=== PATIENT | male | born 1940 | race Caucasian/White ===

== ENCOUNTER 2016-12-28 08:54 | Day surgery (SDC) | payer MEDICARE, BC ==
[2016-12-28] MEDS ORDERED: Dextrose 5%-Lactated Ringers 1,000 ML IV SCH (09:30)
[2016-12-28] MEDS ORDERED: Propofol 200 MG/20 ML SDV ONE (10:04)
[2016-12-28] MEDS ORDERED: Midazolam 1 MG/ML 2 ML SDV ONE (10:05)
[2016-12-28] MEDS ORDERED: fentaNYL 100 MCG/2 ML SDV ONE (10:05)
[2016-12-28] MEDS ORDERED: Glycopyrrolate 0.2 MG/ML 2 ML SYRINGE IVPUSH ONE (10:15)
[2016-12-28] MEDS ORDERED: Famotidine 20 MG/2 ML SDV IVPUSH ONE (11:00)
[2016-12-28 12:03] VITALS: BP 135/63
--- NOTE | 2017-01-03 13:51 | OR ---
DATE OF PROCEDURE: 12/28/2016 PREOPERATIVE DIAGNOSIS: Probable gastroesophageal reflux disease. POSTOPERATIVE DIAGNOSES: 1. Gastroesophageal reflux disease. 2. Mild antral gastritis. OPERATIVE PROCEDURE: Esophagogastroduodenoscopy with: 1. Biopsies of antrum for CLOtest. 2. Biopsies esophagogastric junction for histologic evaluation. ANESTHESIA: IV sedation. INDICATION FOR PROCEDURE: This is a 76-year-old male presenting with some worsening problems with heartburn and associated nausea. The patient was thought to be suffering from gastroesophageal reflux disease and was offered proton pump inhibitor given his renal insufficiency. The patient and his declined to initiate that, and he is back now for a followup upper GI endoscopy to assess the current extent of the disease. Potential risks including bleeding and perforation were discussed, and the patient wishes to proceed. DETAILS OF PROCEDURE: The patient was taken to the operating room and placed in left lateral decubitus position. IV sedation was administered, after which the upper GI endoscope was passed orally through the length of the esophagus into the stomach with retroflexion view of the fundus, and thereafter through the pyloric channel and into the junction of the third and fourth portions of the duodenum. The findings include a normal hypopharynx, larynx, upper esophageal sphincter, and esophageal body. At the EG junction, there was a moderate-sized hiatal hernia measuring around 2 to 3 cm. There was some moderately active gastroesophageal reflux disease. There is no ulcerations present, but the mucosa was generally reddened and somewhat friable. There was no stricture or gross evidence of neoplasia. There was no significant elevation of the gastroesophageal junction mucosal line above the upper gastric folds. The remainder of stomach showed some mild redness in the antrum. The pyloric channel, duodenum, and junction of the third and fourth portions were unremarkable. At this point, biopsies were obtained from the antrum and sent for CLOtest for H. pylori. Multiple biopsies were then obtained from esophagogastric junction and sent for histologic evaluation. No bleeding of the biopsy sites was seen and the procedure then concluded. PLAN: The plan at this point will be to start the patient on some Pepcid. The case was discussed with the hospital pharmacist and given the creatinine clearance in the 30s, I should recommend there to be a dose adjustment of the Pepcid to 20 mg a day and otherwise follow up with Dr. Cintron in 2 to 3 weeks. Jonathan Camp MD /[id number]
== END 2016-12-28 12:20 | disposition home or self-care (01) ==
LOC: JP.SDS 08:54
PROVIDERS: ATTEND Surgery
DX: K31.89 Other diseases of stomach and duodenum (principal); I12.9 Hypertensive chronic kidney disease with stage 1 through stage 4 chronic kidney disease, or unspecified chronic kidney disease; N18.9 Chronic kidney disease, unspecified; E66.9 Obesity, unspecified; J44.9 Chronic obstructive pulmonary disease, unspecified; F17.200 Nicotine dependence, unspecified, uncomplicated
CPT/HCPCS: 43239; 87081; 88305; J2704; J3010; J7042; J2250; S0028

== ENCOUNTER 2019-07-27 17:59 | Inpatient (IN) | payer MEDICARE, BC ==
[2019-07-27] MEDS ORDERED: Sodium Chloride 0.9% 10 ML Syringe FLUSH PRN ×2 (18:03→19:00)
[2019-07-27] MEDS ORDERED: Nitroglycerin 0.4 MG Tab.SL SL PRN (18:03)
[2019-07-27] MEDS ORDERED: Morphine 4 MG/ML Syringe IVPUSH PRN (18:03)
[2019-07-27] MEDS ORDERED: Aspirin 81 MG Tab.Chew PO ONE (18:03)
[2019-07-27] MEDS ORDERED: Alum Hydrox/Mag Hydrox/Simeth 15 ML, Lidocaine 2% 15 ML PO ONE ×2 (18:09)
--- NOTE | 2019-07-27 18:12 | EDM.PDOC ---
ED HPI GENERAL MEDICAL PROBLEM - General Chief Complaint: Cardiovascular Problem Stated Complaint: CHEST PAIN Time Seen by Provider: 07/27/19 18:02 Source of Information: Reports: Patient, Family, Old Records, RN Notes Reviewed History Limitations: Reports: No Limitations - History of Present Illness INITIAL COMMENTS - FREE TEXT/NARRATIVE: 78-year-old female presents emergency department today complaint of chest pressure he states the pressure started about 1 hour prior he does not feel significantly short of breath no diaphoresis no radiation of pain he has had a pain similar to this about 2 years ago which was thought to be reflux. He has no cardiac history positive for tobacco use Chest Pain Score (Numeric/FACES): 5 - Related Data Allergies Allergy/AdvReac Type Severity Reaction Status Date / Time No Known Allergies Allergy Verified 12/28/16 09:12 Home Meds: Home Meds Aspirin 81 mg PO DAILY 09/17/15 [History] Acetaminophen [Acetaminophen Extra Strength] 500 mg PO QID PRN 01/16/16 [History ] Bimatoprost [LUMIGAN 0.01% Ophth Soln] 1 drop EYEBOTH BEDTIME 01/16/16 [History] Brimonidine Tartrate [Alphagan P 0.1% Ophth Soln] 1 drop EYERT DAILY 01/16/16 [ History] Lisinopril [Prinivil] 2.5 mg PO DAILY 10/14/16 [History] Cholecalciferol (Vitamin D3) [Vitamin D3] 400 units PO BID 11/12/16 [History] Ketorolac [Acular LS 0.4% Ophth Soln] 1 drop EYELF BID 12/24/16 [History] Metoprolol Tartrate 25 mg PO DAILY 07/27/19 [History] Past Medical History HEENT History: Reports: Cataract, Glaucoma, Impaired Vision Cardiovascular History: Reports: Hypertension Respiratory History: Reports: COPD Gastrointestinal History: Reports: GERD, Hiatal Hernia Genitourinary History: Reports: Chronic Renal Insuffiency, Urostomy Musculoskeletal History: Reports: Fracture Endocrine/Metabolic History: Reports: Obesity/BMI 30+ Oncologic (Cancer) History: Reports: Bladder, Prostate - Infectious Disease History Infectious Disease History: Reports: Chicken Pox, Measles, Mumps - Past Surgical History HEENT Surgical History: Reports: Cataract Surgery Musculoskeletal Surgical History: Reports: Other (See Below) Social & Family History - Family History Family Medical History: Noncontributory Cardiac: Reports: Heart Failure, Hypertension, [place] Endocrine/Metabolic: Reports: Diabetes, type II Oncologic: Reports: Renal - Tobacco Use Smoking Status *Q: Former Smoker - Caffeine Use Caffeine Use: Reports: Coffee ED ROS GENERAL - Review of Systems Review Of Systems: See Below Constitutional: Reports: No Symptoms. Denies: Diaphoresis HEENT: Reports: No Symptoms Respiratory: Reports: Shortness of Breath (Not more than usual) Cardiovascular: Reports: Chest Pain. Denies: Palpitations, Syncope GI/Abdominal: Reports: No Symptoms : Reports: No Symptoms Musculoskeletal: Reports: No Symptoms Skin: Reports: No Symptoms ED EXAM, GENERAL - Physical Exam Exam: See Below Exam Limited By: No Limitations General Appearance: Alert, WD/WN, No Apparent Distress Head: Atraumatic, Normocephalic Neck: Normal Inspection, Supple, Non-Tender, Full Range of Motion Respiratory/Chest: No Respiratory Distress, Lungs Clear, Normal Breath Sounds, No Accessory Muscle Use, Chest Non-Tender Cardiovascular: Regular Rate, Rhythm, No Murmur GI/Abdominal: Soft, Tender (Tender epigastric region) Extremities: Normal Inspection, Normal Range of Motion, Non-Tender, No Pedal Edema Course - Vital Signs Last Recorded V/S: Last Vital Signs Temp 96.3 F 07/27/19 18:10 Pulse 14 L 07/27/19 20:26 Resp 12 07/27/19 20:26 BP 147/65 H 07/27/19 20:26 Pulse Ox 99 07/27/19 20:26 - Orders/Labs/Meds Orders: Active Orders 24 hr Category Date Time Status Cardiac Monitoring [RC] .As Directed Care 07/27/19 18:03 Active EKG Documentation Completion [RC] ASDIRECTED Care 07/27/19 18:04 Active Peripheral IV Care [RC] . DIRECTED Care 07/27/19 18:04 Active Peripheral IV Care [RC] . DIRECTED Care 07/27/19 19:00 Active Morphine Med 07/27/19 18:03 Active 4 mg IVPUSH Q10M PRN Nitroglycerin [Nitrostat] Med 07/27/19 18:03 Active 0.4 mg SL Q5M PRN Sodium Chloride 0.9% [Saline Flush] Med 07/27/19 18:03 Active 10 ml FLUSH ASDIRECTED PRN Sodium Chloride 0.9% [Saline Flush] Med 07/27/19 19:00 Active 10 ml FLUSH ASDIRECTED PRN Peripheral IV Insertion Adult [OM.PC] Stat Oth 07/27/19 18:03 Ordered Peripheral IV Insertion Adult [OM.PC] Urgent Oth 07/27/19 19:00 Ordered Saline Lock Insert [OM.PC] Stat Oth 07/27/19 18:03 Ordered EKG 12 Lead [EK] Stat Ther 07/27/19 18:03 Ordered Medication Orders Morphine Sulfate (Morphine) 4 mg IVPUSH Q10M PRN PRN Reason: Chest Pain Stop: 07/28/19 18:03 Nitroglycerin (Nitrostat) 0.4 mg SL Q5M PRN PRN Reason: Chest Pain Stop: 07/28/19 18:03 Sodium Chloride (Saline Flush) 10 ml FLUSH ASDIRECTED PRN PRN Reason: Keep Vein Open Last Admin: 07/27/19 18:26 Dose: 10 ml Sodium Chloride (Saline Flush) 10 ml FLUSH ASDIRECTED PRN PRN Reason: Keep Vein Open Labs: Laboratory Tests 07/27/19 07/27/19 07/27/19 Range/Units 18:07 18:07 18:54 WBC 11.0 (4.5-11.0) K/uL RBC 5.35 (4.30-5.90) M/uL Hgb 14.8 (12.0-15.0) g/dL Hct 44.5 (40.0-54.0) % MCV 83 (80-98) fL MCH 28 (27-31) pg MCHC 33 (32-36) % Plt Count 243 (150-400) K/uL Neut % (Auto) 69 H (36-66) % Lymph % (Auto) 19 L (24-44) % Giles % (Auto) 7 H (2-6) % Eos % (Auto) 4 (2-4) % Baso % (Auto) 0 (0-1) % Sodium 141 (140-148) mmol/L Potassium 3.8 (3.6-5.2) mmol/L Chloride 103 (100-108) mmol/L Carbon Dioxide 30 (21-32) mmol/L Anion Gap 8.0 (5.0-14.0) mmol/L BUN 21 H (7-18) mg/dL Creatinine 1.5 H (0.8-1.3) mg/dL Est Cr Clr Drug Dosing 43.26 mL/min Estimated GFR (MDRD) 46 L (>60) Glucose 92 (74-106) mg/dL Calcium 9.0 (8.5-10.1) mg/dL Total Bilirubin 0.4 (0.2-1.0) mg/dL AST 33 (15-37) U/L ALT 32 (12-78) U/L Alkaline Phosphatase 105 (46-116) U/L Troponin I < 0.017 (0.000-0.056) ng/mL Total Protein 7.6 (6.4-8.2) g/dL Albumin 3.8 (3.4-5.0) g/dL Globulin 3.8 H (2.3-3.5) g/dL Albumin/Globulin Ratio 1.0 L (1.2-2.2) Gastric Occult Blood Positive H (NEGATIVE) 07/27/19 07/27/19 Range/Units 20:07 20:07 WBC (4.5-11.0) K/uL RBC (4.30-5.90) M/uL Hgb 13.8 (12.0-15.0) g/dL Hct (40.0-54.0) % MCV (80-98) fL MCH (27-31) pg MCHC (32-36) % Plt Count (150-400) K/uL Neut % (Auto) (36-66) % Lymph % (Auto) (24-44) % Giles % (Auto) (2-6) % Eos % (Auto) (2-4) % Baso % (Auto) (0-1) % Sodium (140-148) mmol/L Potassium (3.6-5.2) mmol/L Chloride (100-108) mmol/L Carbon Dioxide (21-32) mmol/L Anion Gap (5.0-14.0) mmol/L BUN (7-18) mg/dL Creatinine (0.8-1.3) mg/dL Est Cr Clr Drug Dosing mL/min Estimated GFR (MDRD) (>60) Glucose (74-106) mg/dL Calcium (8.5-10.1) mg/dL Total Bilirubin (0.2-1.0) mg/dL AST (15-37) U/L ALT (12-78) U/L Alkaline Phosphatase (46-116) U/L Troponin I < 0.017 (0.000-0.056) ng/mL Total Protein (6.4-8.2) g/dL Albumin (3.4-5.0) g/dL Globulin (2.3-3.5) g/dL Albumin/Globulin Ratio (1.2-2.2) Gastric Occult Blood (NEGATIVE) Meds: Medications Generic Name Dose Route Start Last Admin Trade Name Freq PRN Reason Stop Dose Admin Morphine Sulfate 4 mg 07/27/19 18:03 Morphine IVPUSH 07/28/19 18:03 Q10M PRN Chest Pain Nitroglycerin 0.4 mg 07/27/19 18:03 Nitrostat SL 07/28/19 18:03 Q5M PRN Chest Pain Sodium Chloride 10 ml 07/27/19 18:03 07/27/19 18:26 Saline Flush FLUSH 10 ml ASDIRECTED PRN Administration Keep Vein Open Sodium Chloride 10 ml 07/27/19 19:00 Saline Flush FLUSH ASDIRECTED PRN Keep Vein Open Discontinued Medications Generic Name Dose Route Start Last Admin Trade Name Freq PRN Reason Stop Dose Admin Aspirin 324 mg 07/27/19 18:03 Aspirin PO 07/27/19 18:04 ONETIME ONE Al Hydroxide/Mg Hydroxide 15 0 ml 07/27/19 18:09 07/27/19 18:14 ml/ Lidocaine HCl 15 ml PO 07/27/19 18:10 15 ml ONETIME ONE Administration Lactated Ringer's 1,000 mls @ 999 mls/hr 07/27/19 18:42 07/27/19 18:55 Ringers, Lactated IV 07/27/19 19:42 999 mls/hr BOLUS ONE Administration Ondansetron HCl 4 mg 07/27/19 18:15 07/27/19 18:18 Zofran IVPUSH 07/27/19 18:16 4 mg ONETIME ONE Administration Pantoprazole Sodium 40 mg 07/27/19 19:19 07/27/19 19:48 Protonix Iv IVPUSH 07/27/19 19:20 40 mg ONETIME ONE Administration Departure - Departure Time of Disposition: 21:04 Disposition: Admitted As Inpatient 68 Condition: Fair Clinical Impression: Upper GI bleed Referrals: Chente Cintron MD [Primary Care Provider] - Forms: ED Department Discharge - My Orders Last 24 Hours: My Active Orders 07/27/19 18:03 Cardiac Monitoring [RC] .As Directed Morphine 4 mg IVPUSH Q10M PRN Nitroglycerin [Nitrostat] 0.4 mg SL Q5M PRN Sodium Chloride 0.9% [Saline Flush] 10 ml FLUSH ASDIRECTED PRN Peripheral IV Insertion Adult [OM.PC] Stat Saline Lock Insert [OM.PC] Stat EKG 12 Lead [EK] Stat 07/27/19 18:04 EKG Documentation Completion [RC] ASDIRECTED Peripheral IV Care [RC] . DIRECTED 07/27/19 19:00 Peripheral IV Care [RC] . DIRECTED Sodium Chloride 0.9% [Saline Flush] 10 ml FLUSH ASDIRECTED PRN Peripheral IV Insertion Adult [OM.PC] Urgent - Assessment/Plan Last 24 Hours: My Active Orders 07/27/19 18:03 Cardiac Monitoring [RC] .As Directed Morphine 4 mg IVPUSH Q10M PRN Nitroglycerin [Nitrostat] 0.4 mg SL Q5M PRN Sodium Chloride 0.9% [Saline Flush] 10 ml FLUSH ASDIRECTED PRN Peripheral IV Insertion Adult [OM.PC] Stat Saline Lock Insert [OM.PC] Stat EKG 12 Lead [EK] Stat 07/27/19 18:04 EKG Documentation Completion [RC] ASDIRECTED Peripheral IV Care [RC] . DIRECTED 07/27/19 19:00 Peripheral IV Care [RC] . DIRECTED Sodium Chloride 0.9% [Saline Flush] 10 ml FLUSH ASDIRECTED PRN Peripheral IV Insertion Adult [OM.PC] Urgent Plan: Assessment Acuity = acute Site and laterality = upper GI bleed Etiology = unknown Manifestations = episode of hypotension Location of injury = Home Lab values = CBC unremarkable creatinine elevated 1.5 consistent chronic renal failure stage G IIIa hemoglobin initially 14.802 hours later dropped to 13.8, troponin negative 2, EKG demonstrates a sinus rhythm does have an incomplete right bundle branch block there is no ST elevation or depression this EKG is similar to 2017 chest x-ray shows no acute process per radiology Plan Called discussed case with Dr. Pop kindly agreed to come and evaluate patient emergency department for admission 2100 thus far the patient has received 1 L of lactated Ringer's and 40 mg Protonix IV, This note was dictated using [employer] voice recognition software please call with any questions on syntax or grammar.
[2019-07-27] MEDS ORDERED: Ondansetron 4 MG/2 ML SDV IVPUSH ONE (18:15)
--- NOTE | 2019-07-27 18:41 | CRLCR ---
Indication: Chest pain Technique: Chest 1 view Comparison: January 16, 2016 Findings/Impression: Cardiovascular and mediastinum: Heart size and vasculature are normal in caliber and appearance. Mediastinum is within normal limits. Lungs and pleural space: Lungs are clear. No sign of infiltrate or mass. No sign of pleural effusion. No pneumothorax. Bones and soft tissues: No significant findings. Dictated by Martha Redding MD @ Jul 27 2019 6:34PM Signed by Dr. Martha Redding @ Jul 27 2019 6:39PM
[2019-07-27] MEDS ORDERED: Lactated Ringers 1,000 ML IV ONE (18:42)
[2019-07-27] MEDS ORDERED: Pantoprazole 40 MG Vial IVPUSH ONE (19:19)
[2019-07-27] MEDS ORDERED: Morphine 2 MG/ML Syringe IVPUSH PRN (21:33)
[2019-07-27] MEDS ORDERED: Promethazine 6.25 MG in Sodium Chloride 0.9% 50 ML IV PRN (21:33)
--- NOTE | 2019-07-27 21:33 | PCM.HP.2 ---
H&P History of Present Illness - General Date of Service: 07/27/19 Admit Problem/Dx: GI Bleed Source of Information: Patient History Limitations: Reports: No Limitations - History of Present Illness Initial Comments - Free Text/Narative: 78-year-old male with past medical history of hypertension, hiatal hernia, preious history of bladder cancer status post urostomy, recurrent UTI, Gerd, CKD came to the ED with the complaining of abdominal pain and chest pain. Patient reports of the chest pain started since last four hours which is gradually progressing. Patient reports the pain is 4-5/10 intensity. Situated at lower chest and epigastric area. Patient has two episode of vomiting with blood in the ED. Patient has previous history of hiatal hernia has been on proton pump inhibitors. Patient denies any exceptional chest pain, headaches, dizziness, lightheadedness, blood in the stool, blood in the urine. In the ED patient had EKG and two sets of troponin, which were negative. Patient gastric occult blood test is positive. Patient received thousand ml of bolus in the ED. Patient is full code. Other review of systems are not significant. Chest Pain Score (Numeric/FACES): 5 - Related Data Allergies/Adverse Reactions: Allergies Allergy/AdvReac Type Severity Reaction Status Date / Time No Known Allergies Allergy Verified 12/28/16 09:12 Home Medications: Home Meds Aspirin 81 mg PO DAILY 09/17/15 [History] Acetaminophen [Acetaminophen Extra Strength] 500 mg PO QID PRN 01/16/16 [History ] Bimatoprost [LUMIGAN 0.01% Ophth Soln] 1 drop EYEBOTH BEDTIME 01/16/16 [History] Brimonidine Tartrate [Alphagan P 0.1% Ophth Soln] 1 drop EYERT DAILY 01/16/16 [ History] Lisinopril [Prinivil] 2.5 mg PO DAILY 10/14/16 [History] Cholecalciferol (Vitamin D3) [Vitamin D3] 400 units PO BID 11/12/16 [History] Metoprolol Tartrate 25 mg PO BID 07/27/19 [History] Cephalexin [Keflex] 500 mg PO TID #12 capsule 07/29/19 [Rx] Pantoprazole [ProTONIX] 40 mg PO BIDAC #30 tab.cr 07/29/19 [Rx] Past Medical History HEENT History: Reports: Cataract, Glaucoma, Impaired Vision Cardiovascular History: Reports: Hypertension Respiratory History: Reports: COPD Gastrointestinal History: Reports: GERD, Hiatal Hernia Genitourinary History: Reports: Chronic Renal Insuffiency, Urostomy Musculoskeletal History: Reports: Fracture Endocrine/Metabolic History: Reports: Obesity/BMI 30+ Oncologic (Cancer) History: Reports: Bladder, Prostate - Infectious Disease History Infectious Disease History: Reports: Chicken Pox, Measles, Mumps - Past Surgical History HEENT Surgical History: Reports: Cataract Surgery Musculoskeletal Surgical History: Reports: Other (See Below) Social & Family History - Family History Family Medical History: Noncontributory Cardiac: Reports: Heart Failure, Hypertension, [place] Endocrine/Metabolic: Reports: Diabetes, type II Oncologic: Reports: Renal - Tobacco Use Smoking Status *Q: Former Smoker - Caffeine Use Caffeine Use: Reports: Coffee - Recreational Drug Use Recreational Drug Use: No H&P Review of Systems - Review of Systems: Review Of Systems: See Below General: Denies: Fever, Chills, Malaise, Weakness, Night Sweats HEENT: Reports: No Symptoms Pulmonary: Denies: Shortness of Breath, Wheezing, Pleuritic Chest Pain, Cough, Sputum, Hemoptysis Cardiovascular: Reports: Chest Pain, Lightheadedness. Denies: Palpitations, Dyspnea on Exertion, Orthopnea, PND, Edema, Syncope, Claudication Gastrointestinal: Reports: Abdominal Pain, Hematemesis, Nausea, Vomiting. Denies: Black Stool, Bloody Stool, Constipation, Diarrhea, Difficulty Swallowing Genitourinary: Denies: Dysuria, Frequency Musculoskeletal: Denies: Neck Pain, Shoulder Pain Psychiatric: Denies: Confusion, Depression Neurological: Denies: Confusion, Dizziness, Headache Hematologic/Lymphatic: Denies: Anemia, Easy Bleeding Immunologic: Denies: Anaphylaxis Exam - Exam Exam: See Below - Vital Signs Vital Signs: Last Vital Signs Temp 35.7 C 07/27/19 18:10 Pulse 67 07/27/19 21:12 Resp 13 07/27/19 21:12 BP 156/81 H 07/27/19 21:12 Pulse Ox 99 07/27/19 21:12 Weight: 83.915 kg - Exam General: Alert, Oriented Neck: Supple, Trachea Midline Lungs: Clear to Auscultation, Normal Respiratory Effort Cardiovascular: Regular Rate, Regular Rhythm, Normal S1, Normal S2 GI/Abdominal Exam: Normal Bowel Sounds, Soft, No Organomegaly, Tender. No: No Distention, No Abnormal Bruit, Guarding, Rigid, Rebound Extremities: Normal Inspection, Normal Range of Motion, Non-Tender, No Pedal Edema, Normal Capillary Refill Skin: Warm, Dry, Intact Neuro Extensive - Mental Status: Alert, Oriented x3, Normal Mood/Affect, Memory Intact - Patient Data Lab Results Last 24 hrs: Laboratory Results - last 24 hr 07/27/19 07/27/19 07/27/19 Range/Units 18:07 18:07 18:54 WBC 11.0 (4.5-11.0) K/uL RBC 5.35 (4.30-5.90) M/uL Hgb 14.8 (12.0-15.0) g/dL Hct 44.5 (40.0-54.0) % MCV 83 (80-98) fL MCH 28 (27-31) pg MCHC 33 (32-36) % Plt Count 243 (150-400) K/uL Neut % (Auto) 69 H (36-66) % Lymph % (Auto) 19 L (24-44) % Barren % (Auto) 7 H (2-6) % Eos % (Auto) 4 (2-4) % Baso % (Auto) 0 (0-1) % Sodium 141 (140-148) mmol/L Potassium 3.8 (3.6-5.2) mmol/L Chloride 103 (100-108) mmol/L Carbon Dioxide 30 (21-32) mmol/L Anion Gap 8.0 (5.0-14.0) mmol/L BUN 21 H (7-18) mg/dL Creatinine 1.5 H (0.8-1.3) mg/dL Est Cr Clr Drug Dosing 43.26 mL/min Estimated GFR (MDRD) 46 L (>60) Glucose 92 (74-106) mg/dL Calcium 9.0 (8.5-10.1) mg/dL Total Bilirubin 0.4 (0.2-1.0) mg/dL AST 33 (15-37) U/L ALT 32 (12-78) U/L Alkaline Phosphatase 105 (46-116) U/L Troponin I < 0.017 (0.000-0.056) ng/mL Total Protein 7.6 (6.4-8.2) g/dL Albumin 3.8 (3.4-5.0) g/dL Globulin 3.8 H (2.3-3.5) g/dL Albumin/Globulin Ratio 1.0 L (1.2-2.2) Gastric Occult Blood Positive H (NEGATIVE) 07/27/19 07/27/19 Range/Units 20:07 20:07 WBC (4.5-11.0) K/uL RBC (4.30-5.90) M/uL Hgb 13.8 (12.0-15.0) g/dL Hct (40.0-54.0) % MCV (80-98) fL MCH (27-31) pg MCHC (32-36) % Plt Count (150-400) K/uL Neut % (Auto) (36-66) % Lymph % (Auto) (24-44) % Barren % (Auto) (2-6) % Eos % (Auto) (2-4) % Baso % (Auto) (0-1) % Sodium (140-148) mmol/L Potassium (3.6-5.2) mmol/L Chloride (100-108) mmol/L Carbon Dioxide (21-32) mmol/L Anion Gap (5.0-14.0) mmol/L BUN (7-18) mg/dL Creatinine (0.8-1.3) mg/dL Est Cr Clr Drug Dosing mL/min Estimated GFR (MDRD) (>60) Glucose (74-106) mg/dL Calcium (8.5-10.1) mg/dL Total Bilirubin (0.2-1.0) mg/dL AST (15-37) U/L ALT (12-78) U/L Alkaline Phosphatase (46-116) U/L Troponin I < 0.017 (0.000-0.056) ng/mL Total Protein (6.4-8.2) g/dL Albumin (3.4-5.0) g/dL Globulin (2.3-3.5) g/dL Albumin/Globulin Ratio (1.2-2.2) Gastric Occult Blood (NEGATIVE) Result Diagrams: 07/29/19 05:08 07/28/19 04:00 - Problem List (1) GERD (gastroesophageal reflux disease) SNOMED Code(s): 130469184 ICD Code: K21.9 - GASTRO-ESOPHAGEAL REFLUX DISEASE WITHOUT ESOPHAGITIS Status: Acute (2) Urinary bladder cancer SNOMED Code(s): 007273311 ICD Code: C67.9 - MALIGNANT NEOPLASM OF BLADDER, UNSPECIFIED Status: Acute (3) Esophageal ulcer with bleeding Status: Acute (4) UTI (urinary tract infection) SNOMED Code(s): 22072787 ICD Code: N39.0 - URINARY TRACT INFECTION, SITE NOT SPECIFIED Status: Acute (5) Upper GI bleed SNOMED Code(s): 61898947 ICD Code: K92.2 - GASTROINTESTINAL HEMORRHAGE, UNSPECIFIED Status: Acute (6) CKD (chronic kidney disease) SNOMED Code(s): 409817155 ICD Code: N18.9 - CHRONIC KIDNEY DISEASE, UNSPECIFIED Status: Resolved (7) COPD (chronic obstructive pulmonary disease) SNOMED Code(s): 07651176 ICD Code: J44.9 - CHRONIC OBSTRUCTIVE PULMONARY DISEASE, UNSPECIFIED Status : Chronic (8) Tobacco dependence SNOMED Code(s): 55738589 ICD Code: F17.200 - NICOTINE DEPENDENCE, UNSPECIFIED, UNCOMPLICATED Status : Chronic Problem List Initiated/Reviewed/Updated: Yes Orders Last 24hrs: Active Orders 24 hr Category Date Time Status Cardiac Monitoring [RC] .As Directed Care 07/27/19 18:03 Active EKG Documentation Completion [RC] ASDIRECTED Care 07/27/19 18:04 Active Peripheral IV Care [RC] . DIRECTED Care 07/27/19 18:04 Active Peripheral IV Care [RC] . DIRECTED Care 07/27/19 19:00 Active Morphine Med 07/27/19 18:03 Active 4 mg IVPUSH Q10M PRN Nitroglycerin [Nitrostat] Med 07/27/19 18:03 Active 0.4 mg SL Q5M PRN Sodium Chloride 0.9% [Saline Flush] Med 07/27/19 18:03 Active 10 ml FLUSH ASDIRECTED PRN Sodium Chloride 0.9% [Saline Flush] Med 07/27/19 19:00 Active 10 ml FLUSH ASDIRECTED PRN Peripheral IV Insertion Adult [OM.PC] Stat Oth 07/27/19 18:03 Ordered Peripheral IV Insertion Adult [OM.PC] Urgent Oth 07/27/19 19:00 Ordered Saline Lock Insert [OM.PC] Stat Oth 07/27/19 18:03 Ordered EKG 12 Lead [EK] Stat Ther 07/27/19 18:03 Ordered Medication Orders Morphine Sulfate (Morphine) 4 mg IVPUSH Q10M PRN PRN Reason: Chest Pain Stop: 07/28/19 18:03 Nitroglycerin (Nitrostat) 0.4 mg SL Q5M PRN PRN Reason: Chest Pain Stop: 07/28/19 18:03 Sodium Chloride (Saline Flush) 10 ml FLUSH ASDIRECTED PRN PRN Reason: Keep Vein Open Last Admin: 07/27/19 18:26 Dose: 10 ml Sodium Chloride (Saline Flush) 10 ml FLUSH ASDIRECTED PRN PRN Reason: Keep Vein Open Assessment/Plan Comment:: 78-year-old male with past medical history of hiatal hernia, hypertension, urinary bladder cancer, urostomy in place, Gerd, CKD came to the ED with the complaining of upper abdominal pain and admitted into the hospital in inpatient status with the active G.I. bleed for further management. Patient hemoglobin levels are 13.8 will do H and H every four hours pantoprazole drip maintenance IV fluids Ringer lactate 150 ML per hour consulted surgery team creatinine is at baseline will hold blood pressure medications with the concerns of hypotension Zofran for nausea IV fluids - Ringer lactate 150 ML per hour G.I. prophylaxis - pantoprazole drip code status - full code inpatient status DVT prophylaxis - pass boots pascual catheter - not indicated
[2019-07-27] MEDS: Sodium Chloride 0.9% 100 ML with Pantoprazole 80 MG IV SCH ×2 (22:51)
[2019-07-28] MEDS: Ondansetron 4 MG/2 ML SDV IVPUSH SCH ×3 (00:21→12:45)
[2019-07-28] MEDS: Lactated Ringers 1,000 ML IV SCH ×2 (03:05→09:57)
[2019-07-28] MEDS: Sodium Chloride 0.9% 100 ML with Pantoprazole 80 MG IV SCH ×2 (08:40)
[2019-07-28] MEDS ORDERED: KETOROLAC EYELF SCH (09:00)
[2019-07-28] MEDS: ALPHAGAN P 0.1% EYEBOTH SCH ×3 (09:58→21:21)
[2019-07-28] MEDS ORDERED: EPINEPHrine 1 MG/ML SDV ONE (10:33)
[2019-07-28] MEDS ORDERED: Propofol 200 MG/20 ML SDV ONE (10:35)
[2019-07-28] MEDS ORDERED: fentaNYL 100 MCG/2 ML SDV ONE (10:35)
--- NOTE | 2019-07-28 12:24 | PCM.PN ---
- General Info Date of Service: 07/28/19 Subjective Update: Mr. Gamez is a 78-year-old gentleman who was admitted through the emergency department last night with probable upper GI bleed and abdominal pain. He initially experienced some symptoms of chest pain evaluation in the emergency department for coronary artery disease was negative. While in the emergency department had 2 episodes of hematemesis.He was admitted and given IV fluids for hydration and started on continuous infusion of Protonix. Serial hemoglobin levels of been obtained and have remained stable, with no significant drop. He was kept nothing by mouth and EGD was performed this morning by Dr. Barrios, he was found to have an ulcer at the esophageal gastric junction. No other obvious source of bleeding or pain was identified. Functional Status: Reports: Ambulating, Urinating - Review of Systems General: Reports: Weakness. Denies: Fever, Chills Pulmonary: Reports: No Symptoms Cardiovascular: Reports: No Symptoms Gastrointestinal: Reports: Abdominal Pain, Nausea. Denies: Diarrhea, Difficulty Swallowing, Hematochezia, Melena, Vomiting - Patient Data Vitals - Most Recent: Last Vital Signs Temp 97.9 F 07/28/19 11:45 Pulse 74 07/28/19 11:55 Resp 22 H 07/28/19 12:05 BP 117/46 L 07/28/19 12:05 Pulse Ox 99 07/28/19 12:05 Weight - Most Recent: 180 lb 8 oz I&O - Last 24 Hours: Intake & Output 07/27/19 07/28/19 07/28/19 22:59 06:59 14:59 Intake Total 100 1053 1126 Output Total 600 Balance 100 1053 526 Lab Results Last 24 Hours: Laboratory Results - last 24 hr 07/27/19 07/27/19 07/27/19 Range/Units 18:07 18:07 18:54 WBC 11.0 (4.5-11.0) K/uL RBC 5.35 (4.30-5.90) M/uL Hgb 14.8 (12.0-15.0) g/dL Hct 44.5 (40.0-54.0) % MCV 83 (80-98) fL MCH 28 (27-31) pg MCHC 33 (32-36) % Plt Count 243 (150-400) K/uL Neut % (Auto) 69 H (36-66) % Lymph % (Auto) 19 L (24-44) % [place] % (Auto) 7 H (2-6) % Eos % (Auto) 4 (2-4) % Baso % (Auto) 0 (0-1) % Sodium 141 (140-148) mmol/L Potassium 3.8 (3.6-5.2) mmol/L Chloride 103 (100-108) mmol/L Carbon Dioxide 30 (21-32) mmol/L Anion Gap 8.0 (5.0-14.0) mmol/L BUN 21 H (7-18) mg/dL Creatinine 1.5 H (0.8-1.3) mg/dL Est Cr Clr Drug Dosing 43.26 mL/min Estimated GFR (MDRD) 46 L (>60) Glucose 92 (74-106) mg/dL Calcium 9.0 (8.5-10.1) mg/dL Total Bilirubin 0.4 (0.2-1.0) mg/dL AST 33 (15-37) U/L ALT 32 (12-78) U/L Alkaline Phosphatase 105 (46-116) U/L Troponin I < 0.017 (0.000-0.056) ng/mL Total Protein 7.6 (6.4-8.2) g/dL Albumin 3.8 (3.4-5.0) g/dL Globulin 3.8 H (2.3-3.5) g/dL Albumin/Globulin Ratio 1.0 L (1.2-2.2) Gastric Occult Blood Positive H (NEGATIVE) Blood Type Gel Antibody Screen 07/27/19 07/27/19 07/27/19 Range/Units 20:07 20:07 21:50 WBC (4.5-11.0) K/uL RBC (4.30-5.90) M/uL Hgb 13.8 (12.0-15.0) g/dL Hct (40.0-54.0) % MCV (80-98) fL MCH (27-31) pg MCHC (32-36) % Plt Count (150-400) K/uL Neut % (Auto) (36-66) % Lymph % (Auto) (24-44) % [place] % (Auto) (2-6) % Eos % (Auto) (2-4) % Baso % (Auto) (0-1) % Sodium (140-148) mmol/L Potassium (3.6-5.2) mmol/L Chloride (100-108) mmol/L Carbon Dioxide (21-32) mmol/L Anion Gap (5.0-14.0) mmol/L BUN (7-18) mg/dL Creatinine (0.8-1.3) mg/dL Est Cr Clr Drug Dosing mL/min Estimated GFR (MDRD) (>60) Glucose (74-106) mg/dL Calcium (8.5-10.1) mg/dL Total Bilirubin (0.2-1.0) mg/dL AST (15-37) U/L ALT (12-78) U/L Alkaline Phosphatase (46-116) U/L Troponin I < 0.017 (0.000-0.056) ng/mL Total Protein (6.4-8.2) g/dL Albumin (3.4-5.0) g/dL Globulin (2.3-3.5) g/dL Albumin/Globulin Ratio (1.2-2.2) Gastric Occult Blood (NEGATIVE) Blood Type B NEGATIVE Gel Antibody Screen Negative 07/28/19 07/28/19 07/28/19 Range/Units 00:10 04:00 04:00 WBC 7.6 (4.5-11.0) K/uL RBC 4.78 (4.30-5.90) M/uL Hgb 14.0 13.2 (12.0-15.0) g/dL Hct 41.6 39.7 L (40.0-54.0) % MCV 83 (80-98) fL MCH 28 (27-31) pg MCHC 33 (32-36) % Plt Count 183 (150-400) K/uL Neut % (Auto) 68 H (36-66) % Lymph % (Auto) 23 L (24-44) % [place]itus % (Auto) 7 H (2-6) % Eos % (Auto) 2 (2-4) % Baso % (Auto) 0 (0-1) % Sodium 142 (140-148) mmol/L Potassium 3.8 (3.6-5.2) mmol/L Chloride 106 (100-108) mmol/L Carbon Dioxide 29 (21-32) mmol/L Anion Gap 7.5 (5.0-14.0) mmol/L BUN 21 H (7-18) mg/dL Creatinine 1.5 H (0.8-1.3) mg/dL Est Cr Clr Drug Dosing 43.26 mL/min Estimated GFR (MDRD) 46 L (>60) Glucose 100 (74-106) mg/dL Calcium 8.2 L (8.5-10.1) mg/dL Total Bilirubin 0.5 (0.2-1.0) mg/dL AST 51 H (15-37) U/L ALT 73 D (12-78) U/L Alkaline Phosphatase 110 (46-116) U/L Troponin I (0.000-0.056) ng/mL Total Protein 6.1 L (6.4-8.2) g/dL Albumin 3.0 L (3.4-5.0) g/dL Globulin 3.1 (2.3-3.5) g/dL Albumin/Globulin Ratio 1.0 L (1.2-2.2) Gastric Occult Blood (NEGATIVE) Blood Type Gel Antibody Screen 07/28/19 Range/Units 08:00 WBC (4.5-11.0) K/uL RBC (4.30-5.90) M/uL Hgb 13.5 (12.0-15.0) g/dL Hct 40.7 (40.0-54.0) % MCV (80-98) fL MCH (27-31) pg MCHC (32-36) % Plt Count (150-400) K/uL Neut % (Auto) (36-66) % Lymph % (Auto) (24-44) % [place]itus % (Auto) (2-6) % Eos % (Auto) (2-4) % Baso % (Auto) (0-1) % Sodium (140-148) mmol/L Potassium (3.6-5.2) mmol/L Chloride (100-108) mmol/L Carbon Dioxide (21-32) mmol/L Anion Gap (5.0-14.0) mmol/L BUN (7-18) mg/dL Creatinine (0.8-1.3) mg/dL Est Cr Clr Drug Dosing mL/min Estimated GFR (MDRD) (>60) Glucose (74-106) mg/dL Calcium (8.5-10.1) mg/dL Total Bilirubin (0.2-1.0) mg/dL AST (15-37) U/L ALT (12-78) U/L Alkaline Phosphatase (46-116) U/L Troponin I (0.000-0.056) ng/mL Total Protein (6.4-8.2) g/dL Albumin (3.4-5.0) g/dL Globulin (2.3-3.5) g/dL Albumin/Globulin Ratio (1.2-2.2) Gastric Occult Blood (NEGATIVE) Blood Type Gel Antibody Screen Med Orders - Current: Current Medications Promethazine HCl 6.25 mg/ (Sodium Chloride) 50.25 mls @ 200 mls/hr IV Q6H PRN PRN Reason: Nausea/Vomiting Nitroglycerin (Nitrostat) 0.4 mg SL Q5M PRN PRN Reason: Chest Pain Stop: 07/28/19 18:03 Alphagan P 0.1% (Ptom) 0 drop EYEBOTH TID [facility] Last Admin: 07/28/19 09:58 Dose: 1 drop Ondansetron HCl (Zofran) 4 mg IVPUSH Q6H [facility] Last Admin: 07/28/19 05:53 Dose: 4 mg Pantoprazole Sodium (Protonix) 40 mg PO BIDAC [facility] Lumigan 0.01% Ptom () 0 each EYEBOTH BEDTIME [facility] Senna/Docusate Sodium (Senna Plus) 1 tab PO BID PRN PRN Reason: Constipation Sodium Chloride (Saline Flush) 10 ml FLUSH ASDIRECTED PRN PRN Reason: Keep Vein Open Discontinued Medications Aspirin (Aspirin) 324 mg PO ONETIME ONE Stop: 07/27/19 18:04 Last Admin: 07/27/19 22:37 Dose: Not Given Al Hydroxide/Mg Hydroxide 15 (ml/ Lidocaine HCl 15 ml) 0 ml PO ONETIME ONE Stop: 07/27/19 18:10 Last Admin: 07/27/19 18:14 Dose: 15 ml Epinephrine HCl (Adrenalin) Confirm Administered Dose 1 mg .ROUTE .STK-MED ONE Stop: 07/28/19 10:34 Fentanyl (Sublimaze) Confirm Administered Dose 100 mcg .ROUTE .STK-MED ONE Stop: 07/28/19 10:36 Lactated Ringer's (Ringers, Lactated) 1,000 mls @ 999 mls/hr IV BOLUS ONE Stop: 07/27/19 19:42 Last Admin: 07/27/19 18:55 Dose: 999 mls/hr Pantoprazole Sodium 80 mg/ (Sodium Chloride) 100 mls @ 10 mls/hr IV .Q10H [facility] Last Admin: 07/28/19 08:40 Dose: 10 mls/hr Lactated Ringer's (Ringers, Lactated) 1,000 mls @ 150 mls/hr IV ASDIRECTED [facility] Last Admin: 07/28/19 09:57 Dose: 150 mls/hr Morphine Sulfate (Morphine) 4 mg IVPUSH Q10M PRN PRN Reason: Chest Pain Stop: 07/28/19 18:03 Morphine Sulfate (Morphine) 2 mg IVPUSH Q2H PRN PRN Reason: Pain (severe 7-10) Non-Formulary Medication (Ketorolac [Acular Ls 0.4% Ophth Soln]) 1 drop EYELF BID [facility] Last Admin: 07/28/19 10:01 Dose: Not Given Ondansetron HCl (Zofran) 4 mg IVPUSH ONETIME ONE Stop: 07/27/19 18:16 Last Admin: 07/27/19 18:18 Dose: 4 mg Pantoprazole Sodium (Protonix Iv) 40 mg IVPUSH ONETIME ONE Stop: 07/27/19 19:20 Last Admin: 07/27/19 19:48 Dose: 40 mg Propofol (Diprivan 20 Ml) Confirm Administered Dose 200 mg .ROUTE .STK-MED ONE Stop: 07/28/19 10:36 Sodium Chloride (Saline Flush) 10 ml FLUSH ASDIRECTED PRN PRN Reason: Keep Vein Open Last Admin: 07/27/19 18:26 Dose: 10 ml - Exam General: Alert, Oriented, Cooperative, Mild Distress Lungs: Clear to Auscultation, Normal Respiratory Effort, Decreased Breath Sounds Cardiovascular: Regular Rate, Regular Rhythm, No Murmurs GI/Abdominal Exam: Soft, No Organomegaly, No Distention, Tender. No: Guarding, Rigid, Rebound Extremities: Non-Tender, No Pedal Edema - Problem List Review Problem List Initiated/Reviewed/Updated: Yes - My Orders Last 24 Hours: My Active Orders 07/28/19 12:18 Pantoprazole [ProTONIX] 40 mg PO BIDAC Convert IV to Saline Lock [OM.PC] Routine 07/28/19 17:00 HGB [HEMOGLOBIN] [HEME] Stat 07/29/19 05:11 HGB [HEMOGLOBIN] [HEME] AM - Plan Plan:: ASSESSMENT AND PLAN ABDOMINAL PAIN/UPPER GI BLEED-further evidence of active bleeding since admission, hemoglobin has remained stable. EGD today showed evidence of gastroesophageal ulcer, biopsies pending. Likely source of pain and mild bleeding. -serial hemoglobin levels -Protonix 40 mg by mouth twice a day -Regular diet -Follow-up EGD in [address] Barrios CHEST PAIN-resolved, cardiac cause ruled out in the emergency department. MAINTENANCE ISSUES -DVT prophylaxis;SCUDs, and coagulation contraindicated because of bleed -GI prophylaxis;Protonix as above -Brady catheter;not indicated -Nutrition;regular diet -Nicotine dependence;not required CODE STATUS-FULL CODE ADMISSION STATUS-patient will be admitted to inpatient status, expect at least a 2 night hospital stay for evaluation and management of problems as outlined above. At the time of this admission I do not reasonably expected evaluation and management of this problem will require more than a 96 hour hospital stay. DISPOSITION-anticipate discharge to home after the hospital stay. PRIMARY CARE PROVIDER-Dr. Cintron
[2019-07-28] MEDS: Pantoprazole 40 MG Tab.CR PO SCH ×2 (12:47→18:20)
[2019-07-28] MEDS ORDERED: Ondansetron 4 MG Tab.DIS PO PRN (14:25)
[2019-07-28] MEDS ORDERED: cefTRIAXone 1 GM in Sodium Chloride 0.9% 50 ML IV ONE ×2 (19:47→21:17)
[2019-07-28] MEDS ORDERED: Acetaminophen 500 MG Tab PO PRN ×2 (19:48→21:17)
[2019-07-28] MEDS ORDERED: Latanoprost 0.005% Ophth Soln 2.5 ML Bottle EYEBOTH SCH ×2 (21:00)
[2019-07-28] MEDS ORDERED: LUMIGAN 0.01% EYEBOTH SCH (21:00)
--- NOTE | 2019-07-28 22:18 | PCM.SN ---
- Free Text/Narrative Note: time: 2[address] call from [address] [place] [address] fever of 101, vitals 39.1-100-20 B/P 143/60 a: fever p: order blood culture x 2, tylenol 1 gram now, Rocephin 1 gram IV
[2019-07-29] MEDS: Pantoprazole 40 MG Tab.CR PO SCH (08:36)
[2019-07-29] MEDS: ALPHAGAN P 0.1% EYEBOTH SCH (08:36)
[2019-07-29 10:39] VITALS: BP 124/56; PULSE 91
--- NOTE | 2019-07-29 11:12 | PCM.DCSUM1 ---
Discharge Summary - Hospital Course Brief History: Mr. Gamez is a 78-year-old gentleman who was admitted through the emergency department with weakness, abdominal pain, and hematemesis, secondary to bleeding esophageal ulcer. - Discharge Data Discharge Date: 07/29/19 Discharge Disposition: Home, Self-Care 01 Condition: Fair - Referral to Home Health Primary Care Physician: Chente Cintron MD - Discharge Diagnosis/Problem(s) (1) Esophageal ulcer with bleeding Status: Acute Current Visit: Yes (2) UTI (urinary tract infection) SNOMED Code(s): 87994173 ICD Code: N39.0 - URINARY TRACT INFECTION, SITE NOT SPECIFIED Status: Acute Current Visit: Yes (3) CKD (chronic kidney disease) stage 3, GFR 30-59 ml/min SNOMED Code(s): 081763400 ICD Code: N18.3 - CHRONIC KIDNEY DISEASE, STAGE 3 (MODERATE) Status: Acute Current Visit: Yes (4) Tobacco dependence SNOMED Code(s): 29964727 ICD Code: F17.200 - NICOTINE DEPENDENCE, UNSPECIFIED, UNCOMPLICATED Status : Chronic Current Visit: No - Patient Summary/Data Consults: Consultations 07/27/19 21:33 Consult to Physician [CONS] Routine Consulting Provider: Elias Solares Call Completed to Consulting Physician: No OT Evaluation and Treatment [CONS] Routine Please Evaluate and Treat. OT Reason for Consult: Strengthening This query below is only for informational purposes and is not editable. PT Evaluation and Treatment [CONS] Routine Please Evaluate and Treat. PT Reason for Consult: Strengthening This query below is only for informational purposes and is not editable. Hospital Course: Mr. Gamez is a 78-year-old gentleman who was admitted through the emergency department with probable upper GI bleed and abdominal pain. He initially experienced some symptoms of chest pain, evaluation in the emergency department for coronary artery disease was negative. While in the emergency department he had 2 episodes of hematemesis.He was admitted and given IV fluids for hydration and started on continuous infusion of Protonix. Serial hemoglobin levels were obtained and remained stable, no further evidence of active bleeding noted during his hospital stay. He was kept nothing by mouth and EGD was performed by Dr. Barrios, he was found to have an ulcer at the esophageal gastric junction. No other obvious source of bleeding or pain was identified. He was placed on a regular diet, dietary modifications for underlying ulcer disease were reviewed with the patient as well as his . He is asked to avoid alcohol, caffeine, and nicotine, in addition to acid containing foods. He did well and by the time of discharge was only experiencing mild abdominal pain , significant improvement from admission. He will be continued on the oral Protonix as an outpatient twice daily for 2 weeks, then once daily thereafter. Follow-up appointment for EGD will be scheduled in 6 weeks. On the evening prior to discharge he did experience a significant temperature elevation to 102 . UA showed showed evidence of underlying urinary tract infection and he was in 1 dose of IV ceftriaxone. Urine culture is pending at the time of discharge, he will be treated with cephalexin 500 mg 3 times daily for an additional 4 days. Activity will be as tolerated and he will resume his usual diet with dietary modifications as recommended. Follow-up appointment will be scheduled with his primary care provider within one week, hemoglobin level should be obtained at the time of follow-up appointment - Patient Instructions Diet: No Alcoholic Beverages, GI Soft/Low Residue/Low Fiber Diet, Other: Reviewed appropriate ulcer diet with patient Activity: As Tolerated Other/Special Instructions: Please schedule follow-up appointment with primary care provider within one week, hemoglobin should be obtained at the time of follow-up appointment. Please schedule follow-up EGD with Dr. Barrios in 6 weeks. - Discharge Plan *PRESCRIPTION DRUG MONITORING PROGRAM REVIEWED*: Not Applicable *COPY OF PRESCRIPTION DRUG MONITORING REPORT IN PATIENT [place]BA: Not Applicable Prescriptions/Med Rec: Cephalexin [Keflex] 500 mg PO TID #12 capsule Pantoprazole [ProTONIX] 40 mg PO BIDAC #30 tab.cr Home Medications: Home Meds Aspirin 81 mg PO DAILY 09/17/15 [History] Acetaminophen [Acetaminophen Extra Strength] 500 mg PO QID PRN 01/16/16 [History ] Bimatoprost [LUMIGAN 0.01% Ophth Soln] 1 drop EYEBOTH BEDTIME 01/16/16 [History] Brimonidine Tartrate [Alphagan P 0.1% Ophth Soln] 1 drop EYERT DAILY 01/16/16 [ History] Lisinopril [Prinivil] 2.5 mg PO DAILY 10/14/16 [History] Cholecalciferol (Vitamin D3) [Vitamin D3] 400 units PO BID 11/12/16 [History] Metoprolol Tartrate 25 mg PO BID 07/27/19 [History] Cephalexin [Keflex] 500 mg PO TID #12 capsule 07/29/19 [Rx] Pantoprazole [ProTONIX] 40 mg PO BIDAC #30 tab.cr 07/29/19 [Rx] Referrals: Chente Cintron MD [Primary Care Provider] - 08/04/19 2:00 pm - Discharge Summary/Plan Comment DC Time >30 min.: No - Patient Data Vitals - Most Recent: Last Vital Signs Temp 98.3 F 07/29/19 10:37 Pulse 91 07/29/19 10:37 Resp 18 07/29/19 10:37 BP 124/56 L 07/29/19 10:37 Pulse Ox 93 L 07/29/19 10:37 Weight - Most Recent: 185 lb 12.8 oz I&O - Last 24 hours: Intake & Output 07/28/19 07/29/19 07/29/19 22:59 06:59 14:59 Intake Total 590 300 Output Total 900 875 Balance -310 -575 Lab Results - Last 24 hrs: Laboratory Results - last 24 hr 07/28/19 07/28/19 07/29/19 Range/Units 16:54 20:09 05:08 Hgb 12.6 12.1 (12.0-15.0) g/dL Urine Color Yellow (YELLOW) Urine Appearance Cloudy A (CLEAR) Urine pH >= 9.0 H (5.0-8.0) Ur Specific [place] 1.015 (1.008-1.030) Urine Protein Negative (NEGATIVE) mg/dL Urine Glucose (UA) Negative (NEGATIVE) mg/dL Urine Ketones Negative (NEGATIVE) mg/dL Urine Occult Blood Trace-intact H (NEGATIVE) Urine Nitrite Positive H (NEGATIVE) Urine Bilirubin Negative (NEGATIVE) Urine Urobilinogen 0.2 (0.2-1.0) EU/dL Ur Leukocyte Esterase Negative (NEGATIVE) Urine RBC 5-10 H (0-5) Urine WBC 5-10 H (0-5) Ur Epithelial Cells Not seen Amorphous Sediment Many Urine Bacteria Many Urine Mucus Not seen Med Orders - Current: Current Medications Acetaminophen (Tylenol Extra Strength) 1,000 mg PO Q6H PRN PRN Reason: Fever Last Admin: 07/28/19 21:26 Dose: 1,000 mg Promethazine HCl 6.25 mg/ (Sodium Chloride) 50.25 mls @ 200 mls/hr IV Q6H PRN PRN Reason: Nausea/Vomiting Ceftriaxone Sodium 1 gm/ (Sodium Chloride) 50 mls @ 100 mls/hr IV Q24H [facility] Alphagan P 0.1% (Ptom) 0 drop EYEBOTH TID [facility] Last Admin: 07/29/19 08:36 Dose: 1 drop Ondansetron HCl (Zofran Odt) 4 mg PO Q4H PRN PRN Reason: Nausea/Vomiting Pantoprazole Sodium (Protonix) 40 mg PO BIDAC [facility] Last Admin: 07/29/19 08:36 Dose: 40 mg Lumigan 0.01% Ptom () 0 each EYEBOTH BEDTIME [facility] Last Admin: 07/28/19 21:21 Dose: 1 each Senna/Docusate Sodium (Senna Plus) 1 tab PO BID PRN PRN Reason: Constipation Sodium Chloride (Saline Flush) 10 ml FLUSH ASDIRECTED PRN PRN Reason: Keep Vein Open Discontinued Medications Acetaminophen (Tylenol Extra Strength) 1,000 mg PO Q6H PRN PRN Reason: Fever Aspirin (Aspirin) 324 mg PO ONETIME ONE Stop: 07/27/19 18:04 Last Admin: 07/27/19 22:37 Dose: Not Given Al Hydroxide/Mg Hydroxide 15 (ml/ Lidocaine HCl 15 ml) 0 ml PO ONETIME ONE Stop: 07/27/19 18:10 Last Admin: 07/27/19 18:14 Dose: 15 ml Epinephrine HCl (Adrenalin) Confirm Administered Dose 1 mg .ROUTE .STK-MED ONE Stop: 07/28/19 10:34 Fentanyl (Sublimaze) Confirm Administered Dose 100 mcg .ROUTE .STK-MED ONE Stop: 07/28/19 10:36 Lactated Ringer's (Ringers, Lactated) 1,000 mls @ 999 mls/hr IV BOLUS ONE Stop: 07/27/19 19:42 Last Admin: 07/27/19 18:55 Dose: 999 mls/hr Pantoprazole Sodium 80 mg/ (Sodium Chloride) 100 mls @ 10 mls/hr IV .Q10H [facility] Last Admin: 07/28/19 08:40 Dose: 10 mls/hr Lactated Ringer's (Ringers, Lactated) 1,000 mls @ 150 mls/hr IV ASDIRECTED [facility] Last Admin: 07/28/19 09:57 Dose: 150 mls/hr Ceftriaxone Sodium 1 gm/ (Sodium Chloride) 50 mls @ 100 mls/hr IV ONETIME ONE Stop: 07/28/19 20:16 Last Admin: 07/28/19 21:20 Dose: Not Given Ceftriaxone Sodium 1 gm/ (Sodium Chloride) 50 mls @ 100 mls/hr IV ONETIME ONE Stop: 07/28/19 21:46 Last Admin: 07/28/19 21:28 Dose: 100 mls/hr Morphine Sulfate (Morphine) 4 mg IVPUSH Q10M PRN PRN Reason: Chest Pain Stop: 07/28/19 18:03 Morphine Sulfate (Morphine) 2 mg IVPUSH Q2H PRN PRN Reason: Pain (severe 7-10) Nitroglycerin (Nitrostat) 0.4 mg SL Q5M PRN PRN Reason: Chest Pain Stop: 07/28/19 18:03 Non-Formulary Medication (Ketorolac [Acular Ls 0.4% Ophth Soln]) 1 drop EYELF BID [facility] Last Admin: 07/28/19 10:01 Dose: Not Given Ondansetron HCl (Zofran) 4 mg IVPUSH ONETIME ONE Stop: 07/27/19 18:16 Last Admin: 07/27/19 18:18 Dose: 4 mg Ondansetron HCl (Zofran) 4 mg IVPUSH Q6H [facility] Last Admin: 07/28/19 12:45 Dose: 4 mg Pantoprazole Sodium (Protonix Iv) 40 mg IVPUSH ONETIME ONE Stop: 07/27/19 19:20 Last Admin: 07/27/19 19:48 Dose: 40 mg Propofol (Diprivan 20 Ml) Confirm Administered Dose 200 mg .ROUTE .STK-MED ONE Stop: 07/28/19 10:36 Sodium Chloride (Saline Flush) 10 ml FLUSH ASDIRECTED PRN PRN Reason: Keep Vein Open Last Admin: 07/27/19 18:26 Dose: 10 ml - Exam Quality Assessment: Reports: DVT Prophylaxis General: Reports: Alert, Oriented, Cooperative, Mild Distress Lungs: Reports: Clear to Auscultation, Normal Respiratory Effort, Decreased Breath Sounds Cardiovascular: Reports: Regular Rate, Regular Rhythm, No Murmurs GI/Abdominal Exam: Soft, No Organomegaly, Tender. No: Distended, Guarding, Rigid, Rebound Extremities: Non-Tender, No Pedal Edema
[2019-07-29] MEDS ORDERED: cefTRIAXone 1 GM in Sodium Chloride 0.9% 50 ML IV SCH (21:00)
--- NOTE | 2019-07-31 07:48 | OR ---
DATE OF PROCEDURE: 07/28/2019 SURGEON: Nathaniel Barrios MD PREOPERATIVE DIAGNOSIS: Hematemesis. POSTOPERATIVE DIAGNOSES: Hematemesis, gastroesophageal junction ulcer, and pyloric polyp. PROCEDURES: Esophagogastroduodenoscopy with biopsy of gastroesophageal junction and biopsy of pyloric polyp. No evidence of blood in the upper gastrointestinal tract. ANESTHESIA: IV anesthesia with monitored anesthesia care. INDICATION: This 78-year-old white male was admitted last night with a couple of episodes of hematemesis. Request is made for upper endoscopy. His hemoglobin has been stable in the 13 to 14 range. I counseled him for upper endoscopy with possible biopsy, including risks and alternatives, and he gave his informed consent to proceed. DESCRIPTION OF PROCEDURE: The patient was placed in the left lateral decubitus position. IV anesthesia was administered by the anesthesia service. Time-out was held. The flexible video Olympus upper endoscope was passed through his mouth, down his esophagus, and into his stomach. The scope was easily passed through the pylorus, into the duodenum, and reaching its third portion. The scope was then slowly withdrawn examining the mucosa throughout. The duodenal mucosa appeared unremarkable. The scope was brought up through the pylorus. Right at the edge of the pylorus, a raised area was seen, which was possibly a polyp. We biopsied this. The scope was retroflexed. The proximal stomach appeared unremarkable. We saw no blood anywhere in the upper gastrointestinal tract. There was bile in the stomach, which we aspirated free. The scope was then brought up through the GE junction. Here, we saw an ulcerated lesion and another area possibly of a smaller ulcer. We obtained biopsies of this area. The scope was then brought proximally through remainder of the esophagus, which otherwise appeared unremarkable and was removed. He tolerated the procedure well. Nathaniel Barrios MD /[id number]
== END 2019-07-29 11:36 | disposition home or self-care (01) | DRG 381 ==
LOC: JP.ED 17:59 → JP.MS 21:33
PROVIDERS: ADMIT Family Medicine; ATTEND Hospitalist
PROC: 0DB48ZX Excision of Esophagogastric Junction, Via Natural or Artificial Opening Endoscopic, Diagnostic (ICD-10-PCS; principal; 2019-07-28)
PROC: 0DB78ZX Excision of Stomach, Pylorus, Via Natural or Artificial Opening Endoscopic, Diagnostic (ICD-10-PCS; 2019-07-28)
DX: K92.2 Gastrointestinal hemorrhage, unspecified (principal); I12.9 Hypertensive chronic kidney disease with stage 1 through stage 4 chronic kidney disease, or unspecified chronic kidney disease; K22.11 Ulcer of esophagus with bleeding; N39.0 Urinary tract infection, site not specified; N18.9 Chronic kidney disease, unspecified; J44.9 Chronic obstructive pulmonary disease, unspecified; C67.9 Malignant neoplasm of bladder, unspecified; F17.200 Nicotine dependence, unspecified, uncomplicated; Z87.891 Personal history of nicotine dependence; K44.9 Diaphragmatic hernia without obstruction or gangrene; K21.9 Gastro-esophageal reflux disease without esophagitis; E66.9 Obesity, unspecified; Z79.82 Long term (current) use of aspirin; Z79.899 Other long term (current) drug therapy
CPT/HCPCS: 36415; 71045; 80053; 84484 ×2; 85018; 85025; 93005; 96361; 96374; 96375; 99285; A9270 ×2; C9113; J2405; J7120; 81001; 85014; 86850; 86900; 86901; 87040; 87086; 87088; 87186; 94762; 97161-GP; 97530-GP; 97535-GP; J0171; J0696; J2704; J3010; J7030; J7050

== ENCOUNTER 2019-09-08 09:50 | Day surgery (SDC) | payer MEDICARE, BC ==
[2019-09-08] MEDS ORDERED: fentaNYL 100 MCG/2 ML SDV ONE (10:22)
[2019-09-08] MEDS ORDERED: Propofol 200 MG/20 ML SDV ONE (10:22)
[2019-09-08] MEDS ORDERED: Lactated Ringers 1,000 ML IV SCH (10:30)
--- NOTE | 2019-09-08 12:22 | OR ---
DATE OF PROCEDURE: 09/08/2019 SURGEON: Nathaniel Barrios MD PREOPERATIVE DIAGNOSIS: Ulcer of gastroesophageal junction, 6 weeks followup. POSTOPERATIVE DIAGNOSIS: Healed gastroesophageal junction ulcer. PROCEDURE: Esophagogastroduodenoscopy. ANESTHESIA: IV anesthesia with monitored anesthesia care. INDICATION: A 79-year-old white male 6 weeks ago was admitted in the hospital with upper gastrointestinal hemorrhage. He underwent an upper endoscopy with finding of an ulcer at the gastroesophageal junction. This had stopped bleeding. He was ultimately discharged. He has been on a proton pump inhibitor. He says his symptoms have improved. He is here for a 6-week followup to see if the ulcer has healed. I counseled him for this including risks, alternatives and gave his informed consent to proceed. DESCRIPTION OF PROCEDURE: The patient was placed in the left lateral decubitus position. IV anesthesia was administered by the Anesthesia Service. Time-out was held. The flexible video Olympus upper endoscope was passed through his mouth, down the esophagus, and into his stomach. The scope was easily passed through the pylorus into the duodenum reaching its third portion. The scope was then slowly withdrawn examining the mucosa throughout. The patient did become hypoxic and we were urged to remove the scope. We did get a good look at the ulcer at the gastroesophageal junction, it had healed. He did have a hiatal hernia present. No other lesions noted. The scope was removed. He did tolerate the procedure well. Nathaniel Barrios MD /[id number]
[2019-09-08 12:29] VITALS: PULSE 56
[2019-09-08 12:43] VITALS: BP 116/65
== END 2019-09-08 12:53 | disposition home or self-care (01) ==
LOC: JP.SDS 09:50
PROVIDERS: ATTEND Surgery
DX: Z09 Encounter for follow-up examination after completed treatment for conditions other than malignant neoplasm (principal); K44.9 Diaphragmatic hernia without obstruction or gangrene; R09.02 Hypoxemia; I12.9 Hypertensive chronic kidney disease with stage 1 through stage 4 chronic kidney disease, or unspecified chronic kidney disease; N18.3 Chronic kidney disease, stage 3 (moderate); J44.9 Chronic obstructive pulmonary disease, unspecified; C67.9 Malignant neoplasm of bladder, unspecified; K21.9 Gastro-esophageal reflux disease without esophagitis; F17.200 Nicotine dependence, unspecified, uncomplicated; H40.9 Unspecified glaucoma; Z87.11 Personal history of peptic ulcer disease
CPT/HCPCS: J2704; J3010; J7120

== ENCOUNTER 2020-06-20 20:09 | Emergency (ER) | payer MEDICARE, BC ==
[2020-06-20 20:29] VITALS: BP 175/96; PULSE 89
--- NOTE | 2020-06-20 20:47 | EDM.PDOC ---
ED HPI GENERAL MEDICAL PROBLEM - General Chief Complaint: Gastrointestinal Problem Stated Complaint: THROWING UP Time Seen by Provider: 06/20/20 20:46 Source of Information: Reports: Patient, Family History Limitations: Reports: No Limitations - History of Present Illness INITIAL COMMENTS - FREE TEXT/NARRATIVE: pt arrived after vomiting all day. His saliva has not been going down until about 10 minutes prior to arrival. Onset: Today, Sudden, Other (p had eaten a cold pork chop about noon today and it was after that that he began to vomit everything and it went on all day. ) Duration: Hour(s): Location: Reports: Abdomen Associated Symptoms: Reports: No Other Symptoms - Related Data Allergies Allergy/AdvReac Type Severity Reaction Status Date / Time No Known Allergies Allergy Verified 09/08/19 10:10 Home Meds: Home Meds Aspirin 81 mg PO DAILY 09/17/15 [History] Bimatoprost [LUMIGAN 0.01% Ophth Soln] 1 drop EYEBOTH BEDTIME 01/16/16 [History] Brimonidine Tartrate [Alphagan P 0.1% Ophth Soln] 1 drop EYERT DAILY 01/16/16 [History] lisinopriL [Prinivil] 2.5 mg PO DAILY 10/14/16 [History] Cholecalciferol (Vitamin D3) [Vitamin D3] 400 units PO BID 11/12/16 [History] Metoprolol Tartrate 25 mg PO BID 07/27/19 [History] Past Medical History HEENT History: Reports: Cataract, Glaucoma, Impaired Vision Cardiovascular History: Reports: Hypertension Respiratory History: Reports: COPD Gastrointestinal History: Reports: GERD, GI Bleed, Hiatal Hernia Genitourinary History: Reports: Chronic Renal Insuffiency, Urostomy Musculoskeletal History: Reports: Fracture Neurological History: Reports: None Psychiatric History: Reports: None Endocrine/Metabolic History: Reports: Obesity/BMI 30+ Hematologic History: Reports: None Immunologic History: Reports: None Oncologic (Cancer) History: Reports: Bladder, Prostate Dermatologic History: Reports: None - Infectious Disease History Infectious Disease History: Reports: Chicken Pox - Past Surgical History Head Surgeries/Procedures: Reports: None HEENT Surgical History: Reports: Cataract Surgery Cardiovascular Surgical History: Reports: None Respiratory Surgical History: Reports: None GI Surgical History: Reports: EGD Male Surgical History: Reports: Other (See Below) Other Male Surgeries/Procedures: BLADDER REMOVED Endocrine Surgical History: Reports: None Neurological Surgical History: Reports: None Musculoskeletal Surgical History: Reports: Other (See Below) Other Musculoskeletal Surgeries/Procedures:: FOOT SURGERY Oncologic Surgical History: Reports: None Dermatological Surgical History: Reports: None Social & Family History - Family History Family Medical History: Noncontributory Cardiac: Reports: Heart Failure, Hypertension, NM Endocrine/Metabolic: Reports: Diabetes, type II Oncologic: Reports: Renal - Tobacco Use Smoking Status *Q: Never Smoker - Caffeine Use Caffeine Use: Reports: Coffee - Recreational Drug Use Recreational Drug Use: No ED ROS GENERAL - Review of Systems Review Of Systems: See Below Constitutional: Reports: No Symptoms HEENT: Reports: No Symptoms Respiratory: Reports: No Symptoms Cardiovascular: Reports: No Symptoms Endocrine: Reports: No Symptoms GI/Abdominal: Reports: Nausea, Vomiting, Other (pt ate a cold pork chop and after that nothing seemed to go down including his saliva. ) : Reports: No Symptoms Musculoskeletal: Reports: No Symptoms Skin: Reports: No Symptoms ED EXAM, GI/ABD - Physical Exam Exam: See Below Text/Narrative:: pt arrived with ahistory of vomiting all day after eating a cold pork chop. Exam Limited By: Intoxication General Appearance: Alert, Anxious, Mild Distress Ears: Normal TMs Nose: Normal Inspection Throat/Mouth: Normal Inspection Head: Atraumatic Neck: Normal Inspection Respiratory/Chest: No Respiratory Distress Cardiovascular: Regular Rate, Rhythm GI/Abdominal Exam: Soft, Tender, Other ( no guarding but diffuse tenderness. ) (Male) Exam: Deferred Rectal (Males) Exam: Deferred Back Exam: Normal Inspection Extremities: Normal Inspection Course - Vital Signs Last Recorded V/S: Last Vital Signs Temp 36.1 C 06/20/20 20:33 Pulse 89 06/20/20 20:33 Resp 16 06/20/20 20:33 BP 175/96 H 06/20/20 20:33 Pulse Ox 98 06/20/20 20:33 - Orders/Labs/Meds Orders: Active Orders 24 hr Category Date Time Status Abdomen Series w Chest 1V [CR] Stat Exams 06/20/20 20:49 Taken Sodium Chloride 0.9% [Normal Saline] 1,000 ml Med 06/20/20 21:00 Active IV ASDIRECTED Medication Orders Sodium Chloride (Normal Saline) 1,000 mls @ 999 mls/hr IV ASDIRECTED RADHA Last Admin: 06/20/20 20:55 Dose: 999 mls/hr Documented by: [id number] Labs: Laboratory Tests 06/20/20 06/20/20 06/20/20 Range/Units 20:55 20:55 21:06 WBC 7.3 (4.5-11.0) K/uL RBC 5.42 (4.30-5.90) M/uL Hgb 14.6 D (12.0-15.0) g/dL Hct 44.3 (40.0-54.0) % MCV 82 (80-98) fL MCH 27 (27-31) pg MCHC 33 (32-36) % Plt Count 200 (150-400) K/uL Neut % (Auto) 60 (36-66) % Lymph % (Auto) 27 (24-44) % Nicholas % (Auto) 9 H (2-6) % Eos % (Auto) 3 (2-4) % Baso % (Auto) 0 (0-1) % Sodium 142 (140-148) mmol/L Potassium 4.0 (3.6-5.2) mmol/L Chloride 105 (100-108) mmol/L Carbon Dioxide 24 (21-32) mmol/L Anion Gap 12.8 (5.0-14.0) mmol/L BUN 27 H (7-18) mg/dL Creatinine 1.6 H (0.8-1.3) mg/dL Est Cr Clr Drug Dosing 38.66 mL/min Estimated GFR (MDRD) 42 L (>60) Glucose 92 (74-106) mg/dL Calcium 9.1 (8.5-10.1) mg/dL Total Bilirubin 0.4 (0.2-1.0) mg/dL AST 13 L (15-37) U/L ALT 18 D (12-78) U/L Alkaline Phosphatase 79 (46-116) U/L Total Protein 7.7 (6.4-8.2) g/dL Albumin 4.0 (3.4-5.0) g/dL Globulin 3.7 H (2.3-3.5) g/dL Albumin/Globulin Ratio 1.1 L (1.2-2.2) Lipase 199 (73-393) U/L Urine Color Yellow (YELLOW) Urine Appearance Turbid A (CLEAR) Urine pH 8.5 H (5.0-8.0) Ur Specific [place] 1.020 (1.008-1.030) Urine Protein 100 H (NEGATIVE) mg/dL Urine Glucose (UA) Negative (NEGATIVE) mg/dL Urine Ketones Negative (NEGATIVE) mg/dL Urine Occult Blood Trace-intact H (NEGATIVE) Urine Nitrite Positive H (NEGATIVE) Urine Bilirubin Negative (NEGATIVE) Urine Urobilinogen 0.2 (0.2-1.0) EU/dL Ur Leukocyte Esterase Trace H (NEGATIVE) Urine RBC 0-5 (0-5) Urine WBC 10-20 H (0-5) Ur Epithelial Cells Few Amorphous Sediment Not seen Urine Bacteria Many Urine Mucus Few Urine Other Meds: Medications Generic Name Dose Route Start Last Admin Trade Name Freq PRN Reason Stop Dose Admin Sodium Chloride 1,000 mls @ 999 mls/hr 06/20/20 21:00 06/20/20 20:55 Normal Saline IV 999 mls/hr ASDIRECTED RADHA Administration Discontinued Medications Generic Name Dose Route Start Last Admin Trade Name Freq PRN Reason Stop Dose Admin Ondansetron HCl 4 mg 06/20/20 20:49 06/20/20 21:00 Zofran IVPUSH 06/20/20 20:50 4 mg ONETIME ONE Administration - Re-Assessments/Exams Free Text/Narrative Re-Assessment/Exam: 06/20/20 22:41 pt had a flat and upright which showed no sign of obstruction. He was able to swallow water without difficulty. He was swallowing his saliva. His lab work showed some renal insuff and he was dehydrated. His wbc was normal. 06/20/20 22:43 Departure - Departure Time of Disposition: 22:44 Disposition: Home, Self-Care 01 Condition: Fair Clinical Impression: Obstruction of esophagus due to food impaction - Discharge Information Referrals: Chente Cintron MD [Primary Care Provider] - Forms: ED Department Discharge Care Plan Goals: problem has cleared. Pt is able to swallow with out difficulty Sepsis Event Note (ED) - Evaluation Sepsis Screening Result: No Definite Risk - Focused Exam Vital Signs: Vital Signs Temp Pulse Resp BP Pulse Ox 06/20/20 20:33 36.1 C 89 16 175/96 H 98 06/20/20 20:28 36.1 C 89 16 175/96 H 98 - My Orders Last 24 Hours: My Active Orders 06/20/20 20:49 Abdomen Series w Chest 1V [CR] Stat 06/20/20 21:00 Sodium Chloride 0.9% [Normal Saline] 1,000 ml IV ASDIRECTED - Assessment/Plan Last 24 Hours: My Active Orders 06/20/20 20:49 Abdomen Series w Chest 1V [CR] Stat 06/20/20 21:00 Sodium Chloride 0.9% [Normal Saline] 1,000 ml IV ASDIRECTED
[2020-06-20] MEDS ORDERED: Ondansetron 4 MG/2 ML SDV IVPUSH ONE (20:49)
[2020-06-20] MEDS ORDERED: Sodium Chloride 0.9% 1,000 ML IV SCH (21:00)
--- NOTE | 2020-06-21 10:09 | CR ---
Abdomen Series w Chest 1V CLINICAL HISTORY: Vomiting bloating FINDINGS: No free air is identified. Small intestinal configuration is nonacute. There is gas and feces throughout the colon. Lung magallanes are hyperaerated but clear. IMPRESSION: Nonacute intestinal gas pattern Lungs are clear
== END 2020-06-20 22:53 | disposition home or self-care (01) ==
LOC: JP.ED 20:09
DX: T18.128A Food in esophagus causing other injury, initial encounter (principal); E86.0 Dehydration; I12.9 Hypertensive chronic kidney disease with stage 1 through stage 4 chronic kidney disease, or unspecified chronic kidney disease; N18.9 Chronic kidney disease, unspecified; J44.9 Chronic obstructive pulmonary disease, unspecified; E66.9 Obesity, unspecified; Z68.27 Body mass index [BMI] 27.0-27.9, adult; Z79.82 Long term (current) use of aspirin; Z79.899 Other long term (current) drug therapy
CPT/HCPCS: 36415; 74022; 80053; 81001; 83690; 85025; 96361; 96374; 99284; J2405; J7030

== ENCOUNTER 2020-11-14 07:01 | Day surgery (SDC) | payer MEDICARE, BC ==
[2020-11-14] MEDS ORDERED: Midazolam 1 MG/ML 2 ML SDV ONE (07:30)
[2020-11-14] MEDS ORDERED: Sodium Chloride 0.9% 1,000 ML IV SCH (07:30)
[2020-11-14] MEDS ORDERED: Propofol 200 MG/20 ML SDV ONE (07:30)
[2020-11-14] MEDS ORDERED: fentaNYL 100 MCG/2 ML SDV ONE (07:30)
[2020-11-14 10:26] VITALS: BP 111/68; PULSE 66
--- NOTE | 2020-11-14 12:09 | OR ---
DATE OF PROCEDURE: 11/14/2020 SURGEON: Elias Solares MD PROCEDURE: Esophagogastroduodenoscopy. FINDINGS: 1. A plaque-like lesion at GE junction (biopsied using cold biopsy forceps), all 4 quadrants also biopsied. 2. Small hiatal hernia, approximately 2 cm in size. 3. Retained solid and liquid food noted in stomach. COMPLICATIONS: None. EMPLOYMENT TRAINER: None. PREOPERATIVE DIAGNOSIS: Dysphagia. POSTOPERATIVE DIAGNOSIS: Dysphagia. RISKS: Risks, benefits, alternatives, and limitations including, but not limited to infection, bleeding, and perforation were explained to the patient who wished to proceed. PROCEDURE IN DETAIL: The patient was placed in left lateral decubitus position. The EGD scope was introduced and advanced atraumatically to the second part of the duodenum. No evidence of duodenitis or ulceration. On retroflexion, the patient had no evidence of gastritis. Stomach itself showed a small area of hiatal hernia approximately 2 cm in size. There was approximately 1 cm small plaque-like lesion at the GE junction. This was biopsied multiple times using cold biopsy forceps. The other 3 quadrants of this GE junction were also biopsied using cold biopsy forceps. The remainder of the esophagus was inspected without abnormality. Air was removed. The patient tolerated the procedure well. Elias Solares MD /[id number]
== END 2020-11-14 09:45 | disposition home or self-care (01) ==
LOC: JP.SDS 07:01
PROVIDERS: ATTEND Surgery
DX: K21.00 Gastro-esophageal reflux disease with esophagitis, without bleeding (principal); K22.8 Other specified diseases of esophagus; K22.10 Ulcer of esophagus without bleeding; K44.9 Diaphragmatic hernia without obstruction or gangrene; J44.9 Chronic obstructive pulmonary disease, unspecified; N18.9 Chronic kidney disease, unspecified; F17.200 Nicotine dependence, unspecified, uncomplicated
CPT/HCPCS: 43239; J2250; J2704; J3010; J7030

== ENCOUNTER 2020-12-03 06:32 | Day surgery (SDC) | payer MEDICARE, BC ==
[2020-12-03] MEDS ORDERED: Sodium Chloride 0.9% 1,000 ML IV SCH (07:00)
[2020-12-03] MEDS ORDERED: fentaNYL 100 MCG/2 ML SDV ONE (07:19)
[2020-12-03] MEDS ORDERED: Propofol 200 MG/20 ML SDV ONE (07:20)
--- NOTE | 2020-12-03 08:57 | OR ---
DATE OF PROCEDURE: 12/03/2020 SURGEON: Elias Solares MD PROCEDURE: Esophagogastroduodenoscopy. PREOPERATIVE DIAGNOSIS: Dysphagia. POSTOPERATIVE DIAGNOSIS: Dysphagia. FINDINGS: Inflammation at the GE junction, biopsied in all 4 quadrants using cold biopsy forceps. COMPLICATIONS: None. NURSING HOME ASSISTANT: None. ANESTHESIA: MAC. RISKS: We discussed risks, benefits, alternatives, and limitations including, but not limited to infection, bleeding, false positives, false negatives, aspiration, and other general cardiovascular risks. PROCEDURE IN DETAIL: The patient was placed in left lateral decubitus position. The EGD scope was introduced atraumatically to the second part of the duodenum. No evidence of duodenitis or ulceration. Within the stomach itself, there was not any gastritis. The patient had a very small 1 cm hiatal hernia. At the GE junction, there was inflammation and this was biopsied in all 4 quadrants using cold biopsy forceps. This was nondescript inflammation without any obvious mass effect. Rather, this is more of a raised type tissue which looked to be chronically irritated. Once this was complete, no abnormal bleeding was noted after the biopsies. Remainder of the esophagus was normal. The patient tolerated the procedure well. Elias Solares MD /[id number]
[2020-12-03 08:58] VITALS: BP 109/62; PULSE 59
== END 2020-12-03 09:44 | disposition home or self-care (01) ==
LOC: JP.SDS 06:32
PROVIDERS: ATTEND Surgery
DX: K20.90 Esophagitis, unspecified without bleeding (principal); K44.9 Diaphragmatic hernia without obstruction or gangrene; I12.9 Hypertensive chronic kidney disease with stage 1 through stage 4 chronic kidney disease, or unspecified chronic kidney disease; N18.30 Chronic kidney disease, stage 3 unspecified; J44.9 Chronic obstructive pulmonary disease, unspecified; E66.9 Obesity, unspecified; Z68.28 Body mass index [BMI] 28.0-28.9, adult; Z87.891 Personal history of nicotine dependence; Z79.899 Other long term (current) drug therapy
CPT/HCPCS: 43239; 88305; J2704; J3010; J7030

== ENCOUNTER 2022-09-12 10:07 | Emergency (ER) | payer MEDICARE, BC ==
[2022-09-12] MEDS ORDERED: Lactated Ringers 1,000 ML IV SCH (10:45)
[2022-09-12 10:59] LABS: CORONAVIRUS COVID-19 NAA NEGATIVE (NEGATIVE)
[2022-09-12 11:28] LABS: ESTIMATED GFR 35 mL/min (>60)
[2022-09-12] MEDS ORDERED: cefTRIAXone 1 GM in Sodium Chloride 0.9% 50 ML IV ONE (12:13)
[2022-09-12 12:26] VITALS: PULSE 88
[2022-09-12] MEDS ORDERED: Ondansetron 4 MG/2 ML SDV IVPUSH ONE (12:48)
[2022-09-12] MEDS ORDERED: Lactated Ringers 1,000 ML IV ONE (12:48)
[2022-09-12 13:33] VITALS: BP 119/60
== END 2022-09-12 15:05 | disposition home or self-care (01) ==
LOC: JP.ED 10:07
DX: N30.01 Acute cystitis with hematuria (principal); J44.9 Chronic obstructive pulmonary disease, unspecified; K21.9 Gastro-esophageal reflux disease without esophagitis; I12.9 Hypertensive chronic kidney disease with stage 1 through stage 4 chronic kidney disease, or unspecified chronic kidney disease; N18.9 Chronic kidney disease, unspecified; E66.9 Obesity, unspecified; Z68.28 Body mass index [BMI] 28.0-28.9, adult; Z79.82 Long term (current) use of aspirin; Z79.899 Other long term (current) drug therapy; Z20.822 Contact with and (suspected) exposure to COVID-19
CPT/HCPCS: 0241U; 36415; 71046; 80053; 81001; 83605; 84145; 84484; 85025; 86140; 87040; 87086; 87088; 87186; 96361; 96365; 96375; 99284; J0696; J2405; J7120

== ENCOUNTER 2022-09-17 09:02 | Day surgery (SDC) | payer MEDICARE, BC ==
[2022-09-17] MEDS ORDERED: fentaNYL 50 MCG/ML SDV ONE (09:24)
[2022-09-17] MEDS ORDERED: Propofol 200 MG/20 ML SDV ONE (09:24)
[2022-09-17] MEDS ORDERED: MVI, Adult with Vitamin K 10 ML, Thiamine 200 MG, Zinc/Copper/Manganese/Selenium 1 ML i... IV ONE ×8 (09:30)
[2022-09-17] MEDS ORDERED: Pantoprazole 40 MG Vial ONE (10:51)
[2022-09-17] MEDS ORDERED: Pantoprazole 40 MG Vial IVPUSH ONE (11:00)
[2022-09-17] MEDS ORDERED: Alum Hydrox/Mag Hydrox/Simeth 360 ML, Lidocaine 2% 60 ML PO PRN ×2 (11:19)
[2022-09-17 11:47] VITALS: PULSE 87
[2022-09-17 12:23] VITALS: BP 134/78
== END 2022-09-17 12:26 | disposition home or self-care (01) ==
LOC: JP.SDS 09:02
PROVIDERS: ATTEND Surgery
DX: K22.10 Ulcer of esophagus without bleeding (principal); K44.9 Diaphragmatic hernia without obstruction or gangrene; I12.9 Hypertensive chronic kidney disease with stage 1 through stage 4 chronic kidney disease, or unspecified chronic kidney disease; N18.9 Chronic kidney disease, unspecified; J44.9 Chronic obstructive pulmonary disease, unspecified; Z79.899 Other long term (current) drug therapy
CPT/HCPCS: 43239; 87081; 88305; 88312; 88342; A9270; C9113; J2704; J3010; J3411; J7120

== ENCOUNTER 2022-12-10 11:53 | Inpatient (IN) | payer MEDICARE, BC ==
[2022-12-10] MEDS ORDERED: Sodium Chloride 0.9% 10 ML Syringe FLUSH PRN (12:50)
[2022-12-10] MEDS ORDERED: Ondansetron 4 MG/2 ML SDV IVPUSH ONE (12:51)
[2022-12-10] MEDS ORDERED: Lactated Ringers 1,000 ML IV SCH (13:00)
[2022-12-10 13:32] LABS: ESTIMATED GFR 12 mL/min (>60); TROPONIN I HIGH SENSITIVITY 54.6 pg/mL (<=60.3)
[2022-12-10] MEDS ORDERED: Lactated Ringers 1,000 ML IV ONE (15:33)
[2022-12-10] MEDS ORDERED: cefTRIAXone 1 GM in Sodium Chloride 0.9% 50 ML IV ONE (15:34)
[2022-12-10] MEDS ORDERED: Sodium Chloride 0.9% 1,000 ML IV SCH (15:45)
[2022-12-10 16:44] LABS: CORONAVIRUS COVID-19 NAA NEGATIVE (NEGATIVE)
[2022-12-10] MEDS ORDERED: Acetaminophen 325 MG Tab PO PRN (17:07)
[2022-12-10] MEDS ORDERED: Polyethylene Glycol 3350 Powder 17 GM Packet PO PRN (17:07)
[2022-12-10] MEDS ORDERED: Ondansetron 4 MG/2 ML SDV IV PRN (17:07)
[2022-12-10] MEDS: Enoxaparin 30 MG/0.3 ML Syringe SUBCUT SCH (18:02)
[2022-12-10] MEDS: Sodium Chloride 0.9% 1,000 ML IV SCH ×2 (18:31→23:25)
[2022-12-10] MEDS ORDERED: Non-Formulary Medication 1 Each (Bimatoprost [Lumigan 0.01% Ophth Soln] 2.5 ML Bottle) EYEBOTH SCH (21:00)
[2022-12-10] MEDS: Metoprolol Tartrate 25 MG Tab PO SCH (21:33)
[2022-12-11] MEDS ORDERED: Potassium Chloride 20 MEQ Tab.ER PO ONE ×2 (08:15→17:00)
[2022-12-11] MEDS: Sodium Chloride 0.9% 1,000 ML IV SCH (08:29)
[2022-12-11] MEDS: Metoprolol Tartrate 25 MG Tab PO SCH ×2 (08:30→22:17)
[2022-12-11] MEDS ORDERED: Metoprolol Tartrate 50 MG Tab PO SCH ×2 (09:00)
[2022-12-11] MEDS: Pantoprazole 40 MG Tab.CR PO SCH (10:26)
[2022-12-11] MEDS: DEXAMETHASONE EYERT SCH ×3 (10:28→22:19)
[2022-12-11] MEDS: NEOMYCIN EYERT SCH ×3 (10:28→22:19)
[2022-12-11] MEDS: POLYMYXIN B EYERT SCH ×3 (10:28→22:19)
[2022-12-11] MEDS: COMBIGAN OPTH EYEBOTH SCH ×2 (10:29→22:18)
[2022-12-11] MEDS ORDERED: Sodium Chloride 0.9% 1,000 ML IV SCH (12:30)
[2022-12-11] MEDS ORDERED: cefTRIAXone 1 GM in Sodium Chloride 0.9% 50 ML IV SCH (16:00)
[2022-12-11] MEDS: Loperamide 2 MG Cap PO PRN (16:36)
[2022-12-11] MEDS: Enoxaparin 30 MG/0.3 ML Syringe SUBCUT SCH (18:14)
[2022-12-11] MEDS ORDERED: Latanoprost 0.005% Ophth Soln (PTOM) EYEBOTH SCH (21:00)
[2022-12-12] MEDS: POLYMYXIN B EYERT SCH ×2 (06:29→09:14)
[2022-12-12] MEDS: NEOMYCIN EYERT SCH ×2 (06:29→09:14)
[2022-12-12] MEDS: DEXAMETHASONE EYERT SCH ×2 (06:29→09:14)
[2022-12-12] MEDS: Pantoprazole 40 MG Tab.CR PO SCH (08:00)
[2022-12-12] MEDS: Metoprolol Tartrate 25 MG Tab PO SCH (08:00)
[2022-12-12] MEDS: COMBIGAN OPTH EYEBOTH SCH (08:02)
[2022-12-12] MEDS: Loperamide 2 MG Cap PO PRN (08:05)
[2022-12-12 10:36] VITALS: BP 125/63; PULSE 63
== END 2022-12-12 11:29 | disposition home or self-care (01) | DRG 683 ==
LOC: JP.ED 11:53 → JP.MS 16:06
PROVIDERS: ADMIT Hospitalist; ATTEND Hospitalist
DX: N17.9 Acute kidney failure, unspecified (principal); N30.01 Acute cystitis with hematuria; A08.4 Viral intestinal infection, unspecified; E86.0 Dehydration; I12.9 Hypertensive chronic kidney disease with stage 1 through stage 4 chronic kidney disease, or unspecified chronic kidney disease; F17.210 Nicotine dependence, cigarettes, uncomplicated; N18.4 Chronic kidney disease, stage 4 (severe); K21.9 Gastro-esophageal reflux disease without esophagitis; Z20.822 Contact with and (suspected) exposure to COVID-19; H40.9 Unspecified glaucoma; E66.9 Obesity, unspecified; J44.9 Chronic obstructive pulmonary disease, unspecified; Z68.28 Body mass index [BMI] 28.0-28.9, adult; Z79.899 Other long term (current) drug therapy; Z87.19 Personal history of other diseases of the digestive system; Z98.42 Cataract extraction status, left eye; Z98.41 Cataract extraction status, right eye; Z98.890 Other specified postprocedural states
CPT/HCPCS: 0241U; 36415; 80048; 83735; 85027; 87086; 97161; 99222; 99232; 99238; 80053; 81001; 83605; 83690; 84484; 85025; 99284; A9270-GY; J0696; J1650; J2405; J3490; J7030; J7120

== ENCOUNTER 2023-03-05 23:10 | Inpatient (IN) | payer MEDICARE, BC ==
[2023-03-06 00:19] LABS: BASOPHILS ABSOLUTE AUTO 0.03 K/uL (0.00-0.10); BASOPHILS PERCENT AUTO 0.3 % (0.1-1.3); EOSINOPHILS ABSOLUTE AUTO 0.44 K/uL (0.00-0.40); EOSINOPHILS PERCENT AUTO 3.7 % (0.0-5.4); HEMATOCRIT 41.8 % (38.4-49.7); HEMOGLOBIN 14.2 g/dL (12.9-16.9); IMMATURE GRAN ABSOLUTE AUTO 0.22 K/uL (0.00-0.23); IMMATURE GRAN PERCENT AUTO 1.8 % (0.0-0.7); LYMPHOCYTES ABSOLUTE AUTO 1.19 K/uL (0.8-3.3); LYMPHOCYTES PERCENT AUTO 9.9 % (11.4-47.7); MEAN CORPUSCULAR HEMOGLOBIN 28.1 pg (31.6-35.5); MEAN CORPUSCULAR VOLUME 82.8 fL (81.4-99.0); MONOCYTES ABSOLUTE AUTO 0.23 K/uL (0.20-0.90); MONOCYTES PERCENT AUTO 1.9 % (3.3-12.6); NEUTROPHILS ABSOLUTE AUTO 9.85 K/uL (1.0-7.6); NEUTROPHILS PERCENT AUTO 82.4 % (40.0-78.1); PLATELET COUNT,PLT 227 K/uL (130-375); RED BLOOD CELL COUNT 5.05 M/uL (4.14-5.76)
[2023-03-06 00:33] LABS: A/G RATIO 0.9 (1.2-2.2); ALANINE AMINOTRANSFERASE,ALT 125 U/L (12-78); ALBUMIN 3.7 g/dL (3.4-5.0); ALKALINE PHOSPHATASE 184 U/L (46-116); ANION GAP 9.8 mmol/L (5.0-14.0); ASPARTATE AMNIOTRANSFERASE,AST 161 U/L (15-37); BILIRUBIN TOTAL 1.4 mg/dL (0.2-1.0); BLOOD UREA NITROGEN,BUN 24 mg/dL (7-18); CALCIUM 9.1 mg/dL (8.5-10.1); CARBON DIOXIDE,CO2 28 mmol/L (21-32); CHLORIDE,CL 102 mmol/L (100-108); CREATININE 1.6 mg/dL (0.8-1.3); ESTIMATED GFR 43 mL/min (>60); GLUCOSE RANDOM 142 mg/dL (74-106); POTASSIUM,K 4.2 mmol/L (3.6-5.2); PROTEIN TOTAL,TP 7.8 g/dL (6.4-8.2); SODIUM,NA 140 mmol/L (140-148)
[2023-03-06 00:41] LABS: C-REACTIVE PROTEIN 1.28 mg/dL (0.0-0.3)
[2023-03-06] MEDS ORDERED: Lactated Ringers 1,000 ML IV SCH (01:00)
[2023-03-06] MEDS ORDERED: Meropenem 1 GM in Sodium Chloride 0.9% 100 ML IV SCH (05:15)
[2023-03-06] MEDS ORDERED: Acetaminophen 325 MG Tab PO PRN (05:33)
[2023-03-06] MEDS ORDERED: Metoprolol Tartrate 25 MG Tab PO SCH (05:33)
[2023-03-06] MEDS ORDERED: fentaNYL 50 MCG/ML SDV IVPUSH PRN (05:33)
[2023-03-06] MEDS ORDERED: Ondansetron 4 MG Tab.DIS PO PRN (05:33)
[2023-03-06] MEDS ORDERED: Ondansetron 4 MG/2 ML SDV IV PRN (05:33)
[2023-03-06] MEDS: Lactated Ringers 1,000 ML IV SCH ×2 (05:41→23:15)
[2023-03-06] MEDS: Pantoprazole 40 MG Vial IV SCH (05:56)
[2023-03-06] MEDS ORDERED: Timolol Maleate 0.5% Ophth Soln 5 ML Bottle EYEBOTH SCH ×2 (07:30→09:00)
[2023-03-06] MEDS ORDERED: Dorzolamide 2% Ophth Soln 10 ML Bottle EYEBOTH SCH (09:00)
[2023-03-06] MEDS ORDERED: Brimonidine 0.2% Ophth Soln 5 ML Bottle EYEBOTH SCH (09:00)
[2023-03-06] MEDS: Brimonidine 0.2% Ophth Soln 5 ML Bottle EYEBOTH SCH ×2 (09:30→21:20)
[2023-03-06] MEDS: Timolol Maleate 0.5% Ophth Soln 5 ML Bottle EYEBOTH SCH (09:33)
[2023-03-06] MEDS: Dorzolamide 2% Ophth Soln 10 ML Bottle EYEBOTH SCH ×2 (09:34→21:21)
[2023-03-06] MEDS: Metoprolol Tartrate 25 MG Tab PO SCH ×2 (09:43→21:22)
[2023-03-06] MEDS: Lisinopril 2.5 MG Tab PO SCH ×3 (09:43→21:22)
[2023-03-06] MEDS: Meropenem 1 GM in Sodium Chloride 0.9% 100 ML IV SCH ×2 (16:57→23:13)
[2023-03-06] MEDS: Enoxaparin 30 MG/0.3 ML Syringe SUBCUT SCH (17:02)
[2023-03-06] MEDS: Latanoprost 0.005% Ophth Soln 2.5 ML Bottle EYEBOTH SCH (21:21)
[2023-03-07 04:44] LABS: BASOPHILS ABSOLUTE AUTO 0.03 K/uL (0.00-0.10); BASOPHILS PERCENT AUTO 0.4 % (0.1-1.3); EOSINOPHILS ABSOLUTE AUTO 0.29 K/uL (0.00-0.40); EOSINOPHILS PERCENT AUTO 3.5 % (0.0-5.4); HEMATOCRIT 32.4 % (38.4-49.7); IMMATURE GRAN ABSOLUTE AUTO 0.03 K/uL (0.00-0.23); IMMATURE GRAN PERCENT AUTO 0.4 % (0.0-0.7); LYMPHOCYTES ABSOLUTE AUTO 1.05 K/uL (0.8-3.3); LYMPHOCYTES PERCENT AUTO 12.7 % (11.4-47.7); MEAN CORPUSCULAR HEMOGLOBIN 28.1 pg (31.6-35.5); MEAN CORPUSCULAR VOLUME 82.7 fL (81.4-99.0); NEUTROPHILS ABSOLUTE AUTO 6.38 K/uL (1.0-7.6); PLATELET COUNT,PLT 148 K/uL (130-375); RED BLOOD CELL COUNT 3.92 M/uL (4.14-5.76); WHITE BLOOD CELL COUNT,WBC 8.3 K/uL (3.2-11.0)
[2023-03-07] MEDS: Pantoprazole 40 MG Vial IV SCH (04:50)
[2023-03-07 05:02] LABS: A/G RATIO 0.8 (1.2-2.2); ALANINE AMINOTRANSFERASE,ALT 207 U/L (12-78); ALBUMIN 2.5 g/dL (3.4-5.0); ALKALINE PHOSPHATASE 151 U/L (46-116); AMYLASE 559 U/L (25-115); ASPARTATE AMNIOTRANSFERASE,AST 126 U/L (15-37); BILIRUBIN TOTAL 4.5 mg/dL (0.2-1.0); BLOOD UREA NITROGEN,BUN 27 mg/dL (7-18); CALCIUM 8.3 mg/dL (8.5-10.1); CARBON DIOXIDE,CO2 25 mmol/L (21-32); CHLORIDE,CL 105 mmol/L (100-108); CREATININE 1.7 mg/dL (0.8-1.3); EST CRCL DRUG DOSING (CG) 34.66 mL/min; ESTIMATED GFR 40 mL/min (>60); GLUCOSE RANDOM 82 mg/dL (74-106); MAGNESIUM 1.8 mg/dL (1.8-2.4); PHOSPHORUS 2.5 mg/dL (2.5-4.9); POTASSIUM,K 3.4 mmol/L (3.6-5.2); PROTEIN TOTAL,TP 5.8 g/dL (6.4-8.2); SODIUM,NA 140 mmol/L (140-148)
[2023-03-07 05:44] LABS: ANION GAP 13.4 mmol/L (5.0-14.0); LIPASE 6007 U/L (73-393)
[2023-03-07] MEDS: Meropenem 1 GM in Sodium Chloride 0.9% 100 ML IV SCH ×2 (08:01→20:57)
[2023-03-07] MEDS: Lactated Ringers 1,000 ML IV SCH ×2 (08:02→17:47)
[2023-03-07] MEDS: Timolol Maleate 0.5% Ophth Soln 5 ML Bottle EYEBOTH SCH (08:04)
[2023-03-07] MEDS: Dorzolamide 2% Ophth Soln 10 ML Bottle EYEBOTH SCH ×2 (09:16→21:00)
[2023-03-07] MEDS: Brimonidine 0.2% Ophth Soln 5 ML Bottle EYEBOTH SCH ×2 (09:18→21:01)
[2023-03-07] MEDS: Metoprolol Tartrate 25 MG Tab PO SCH ×2 (09:21→21:00)
[2023-03-07] MEDS ORDERED: Potassium Chloride 10 MEQ in Premix Bag 1 BAG IV ONE (10:00)
[2023-03-07] MEDS: Enoxaparin 30 MG/0.3 ML Syringe SUBCUT SCH (17:17)
[2023-03-07] MEDS: Lisinopril 2.5 MG Tab PO SCH (21:00)
[2023-03-07] MEDS: Latanoprost 0.005% Ophth Soln 2.5 ML Bottle EYEBOTH SCH (21:00)
[2023-03-08] MEDS: Lactated Ringers 1,000 ML IV SCH (02:41)
[2023-03-08 04:21] LABS: BASOPHILS PERCENT AUTO 0.3 % (0.1-1.3); EOSINOPHILS ABSOLUTE AUTO 0.58 K/uL (0.00-0.40); HEMATOCRIT 32.2 % (38.4-49.7); IMMATURE GRAN PERCENT AUTO 0.3 % (0.0-0.7); LYMPHOCYTES ABSOLUTE AUTO 0.97 K/uL (0.8-3.3); MEAN CORPUSCULAR HEMOGLOBIN 28.2 pg (31.6-35.5); MEAN CORPUSCULAR HGB CONC 34.2 g/dL (31.6-35.5); MEAN CORPUSCULAR VOLUME 82.6 fL (81.4-99.0); MONOCYTES PERCENT AUTO 7.8 % (3.3-12.6); NEUTROPHILS ABSOLUTE AUTO 4.36 K/uL (1.0-7.6); NEUTROPHILS PERCENT AUTO 67.6 % (40.0-78.1); PLATELET COUNT,PLT 144 K/uL (130-375); WHITE BLOOD CELL COUNT,WBC 6.5 K/uL (3.2-11.0)
[2023-03-08 04:25] LABS: BASOPHILS ABSOLUTE AUTO 0.02 K/uL (0.00-0.10); IMMATURE GRAN ABSOLUTE AUTO 0.02 K/uL (0.00-0.23)
[2023-03-08 04:46] LABS: A/G RATIO 0.7 (1.2-2.2); ALANINE AMINOTRANSFERASE,ALT 132 U/L (12-78); ALBUMIN 2.4 g/dL (3.4-5.0); ALKALINE PHOSPHATASE 164 U/L (46-116); AMYLASE 149 U/L (25-115); ANION GAP 9.5 mmol/L (5.0-14.0); ASPARTATE AMNIOTRANSFERASE,AST 49 U/L (15-37); BILIRUBIN TOTAL 2.4 mg/dL (0.2-1.0); BLOOD UREA NITROGEN,BUN 24 mg/dL (7-18); CALCIUM 8.5 mg/dL (8.5-10.1); CARBON DIOXIDE,CO2 26 mmol/L (21-32); CHLORIDE,CL 105 mmol/L (100-108); CREATININE 1.4 mg/dL (0.8-1.3); EST CRCL DRUG DOSING (CG) 42.08 mL/min; ESTIMATED GFR 51 mL/min (>60); GLUCOSE RANDOM 63 mg/dL (74-106); MAGNESIUM 1.6 mg/dL (1.8-2.4); PHOSPHORUS 2.5 mg/dL (2.5-4.9); POTASSIUM,K 3.6 mmol/L (3.6-5.2); PRO B-TYPE NATRIUR PEPT,BNPPRO 4149 pg/mL (5-450); SODIUM,NA 140 mmol/L (140-148)
[2023-03-08 05:07] LABS: LIPASE 2143 U/L (73-393)
[2023-03-08] MEDS: Pantoprazole 40 MG Vial IV SCH (05:08)
[2023-03-08] MEDS ORDERED: Bupivacaine 0.5% 50 ML MDV ONE (07:01)
[2023-03-08] MEDS ORDERED: Lidocaine 1% with EPINEPHrine 1:100,000 50 ML MDV ONE (07:01)
[2023-03-08] MEDS: Meropenem 1 GM in Sodium Chloride 0.9% 100 ML IV SCH ×2 (07:30→20:03)
[2023-03-08] MEDS ORDERED: Ketamine 20 MG in Sodium Chloride 0.9% 19.8 ML IV SCH (07:30)
[2023-03-08] MEDS ORDERED: Ropivacaine 40 ML, dexAMETHasone 8 MG, EPINEPHrine 0.4 MG, Sodium Chloride 0.9% 37.6 ML NERVRT SCH ×4 (07:30)
[2023-03-08] MEDS: Timolol Maleate 0.5% Ophth Soln 5 ML Bottle EYEBOTH SCH (07:30)
[2023-03-08] MEDS ORDERED: Ketamine 500 MG/5 ML MDV IV SCH (07:30)
[2023-03-08] MEDS: Dorzolamide 2% Ophth Soln 10 ML Bottle EYEBOTH SCH ×2 (08:23→21:25)
[2023-03-08] MEDS: Metoprolol Tartrate 25 MG Tab PO SCH ×2 (08:24→21:18)
[2023-03-08] MEDS: Brimonidine 0.2% Ophth Soln 5 ML Bottle EYEBOTH SCH ×2 (08:25→21:25)
[2023-03-08] MEDS: Magnesium Sulfate/Water 2 GM/50 ML BAG IV SCH ×4 (08:27→21:28)
[2023-03-08] MEDS ORDERED: Glycopyrrolate 0.2 MG/ML 5 ML MDV ONE (08:29)
[2023-03-08] MEDS ORDERED: Rocuronium 50 MG/5 ML Vial ONE (08:29)
[2023-03-08] MEDS ORDERED: Ondansetron 4 MG/2 ML SDV ONE (08:29)
[2023-03-08] MEDS ORDERED: Dexamethasone 4 MG/ML SDV ONE (08:29)
[2023-03-08] MEDS ORDERED: Propofol 200 MG/20 ML SDV ONE (08:29)
[2023-03-08] MEDS ORDERED: Neostigmine Methylsulfate 1 MG/ML 5 ML Syringe ONE (08:29)
[2023-03-08] MEDS ORDERED: Succinylcholine 200 MG/10 ML MDV ONE (08:29)
[2023-03-08] MEDS ORDERED: fentaNYL 250 MCG/5 ML SDV ONE (08:31)
[2023-03-08] MEDS ORDERED: Magnesium Sulfate/Water 2 GM in Premix Bag 1 BAG IV ONE (10:00)
[2023-03-08] MEDS ORDERED: Lactated Ringers 1,000 ML ONE (11:25)
[2023-03-08] MEDS ORDERED: Labetalol 20 MG/4 ML Syringe ONE (12:00)
[2023-03-08] MEDS ORDERED: Sugammadex Sodium 200 MG/2 ML VIAL ONE (12:17)
[2023-03-08] MEDS ORDERED: HYDROmorphone 0.5 MG/0.5 ML Syringe IVPUSH PRN (13:50)
[2023-03-08] MEDS ORDERED: HYDROmorphone 1 MG/ML Syringe IV PRN (13:51)
[2023-03-08] MEDS ORDERED: Ondansetron 4 MG/2 ML SDV IV PRN (14:00)
[2023-03-08] MEDS: Acetaminophen 325 MG Tab PO SCH (18:24)
[2023-03-08] MEDS: oxyCODONE 5 MG Tab PO PRN (20:02)
[2023-03-08] MEDS: Dextrose 5%-Lactated Ringers 1,000 ML IV SCH (20:02)
[2023-03-08] MEDS: Latanoprost 0.005% Ophth Soln 2.5 ML Bottle EYEBOTH SCH (21:24)
[2023-03-08] MEDS: Lisinopril 2.5 MG Tab PO SCH (21:26)
[2023-03-09] MEDS: Acetaminophen 325 MG Tab PO SCH ×2 (00:47→06:02)
[2023-03-09 04:20] LABS: HEMATOCRIT 34.3 % (38.4-49.7); HEMOGLOBIN 11.7 g/dL (12.9-16.9); MEAN CORPUSCULAR HEMOGLOBIN 28.3 pg (31.6-35.5); MEAN CORPUSCULAR HGB CONC 34.1 g/dL (31.6-35.5); MEAN CORPUSCULAR VOLUME 82.9 fL (81.4-99.0); RED BLOOD CELL COUNT 4.14 M/uL (4.14-5.76); WHITE BLOOD CELL COUNT,WBC 7.9 K/uL (3.2-11.0)
[2023-03-09] MEDS: Pantoprazole 40 MG Vial IV SCH (04:38)
[2023-03-09] MEDS: Magnesium Sulfate/Water 2 GM/50 ML BAG IV SCH (04:39)
[2023-03-09 04:45] LABS: A/G RATIO 0.6 (1.2-2.2); ALANINE AMINOTRANSFERASE,ALT 107 U/L (12-78); ALBUMIN 2.3 g/dL (3.4-5.0); ALKALINE PHOSPHATASE 164 U/L (46-116); AMYLASE 32 U/L (25-115); ANION GAP 10.6 mmol/L (5.0-14.0); ASPARTATE AMNIOTRANSFERASE,AST 32 U/L (15-37); BILIRUBIN TOTAL 1.1 mg/dL (0.2-1.0); BLOOD UREA NITROGEN,BUN 22 mg/dL (7-18); CALCIUM 8.5 mg/dL (8.5-10.1); CARBON DIOXIDE,CO2 27 mmol/L (21-32); CHLORIDE,CL 103 mmol/L (100-108); CREATININE 1.6 mg/dL (0.8-1.3); EST CRCL DRUG DOSING (CG) 36.82 mL/min; ESTIMATED GFR 43 mL/min (>60); GLUCOSE RANDOM 299 mg/dL (74-106); POTASSIUM,K 3.6 mmol/L (3.6-5.2); PROTEIN TOTAL,TP 6.4 g/dL (6.4-8.2); SODIUM,NA 137 mmol/L (140-148)
[2023-03-09] MEDS: Dextrose 5%-Lactated Ringers 1,000 ML IV SCH (04:45)
[2023-03-09] MEDS: Timolol Maleate 0.5% Ophth Soln 5 ML Bottle EYEBOTH SCH (07:20)
[2023-03-09 08:15] VITALS: BP 166/76
[2023-03-09] MEDS: oxyCODONE 5 MG Tab PO PRN (09:17)
[2023-03-09] MEDS: Dorzolamide 2% Ophth Soln 10 ML Bottle EYEBOTH SCH (09:19)
[2023-03-09] MEDS: Metoprolol Tartrate 25 MG Tab PO SCH (09:20)
[2023-03-09] MEDS: Brimonidine 0.2% Ophth Soln 5 ML Bottle EYEBOTH SCH (09:20)
[2023-03-09 09:23] VITALS: PULSE 63
== END 2023-03-09 10:10 | disposition home or self-care (01) | DRG 417 ==
LOC: JP.ED 23:10 → JP.MS 03-06 03:48
PROVIDERS: ADMIT Internal Medicine; ATTEND Internal Medicine
PROC: 0FT44ZZ Resection of Gallbladder, Percutaneous Endoscopic Approach (ICD-10-PCS; principal; 2023-03-08)
DX: K85.90 Acute pancreatitis without necrosis or infection, unspecified (principal); K80.00 Calculus of gallbladder with acute cholecystitis without obstruction; R00.1 Bradycardia, unspecified; I10 Essential (primary) hypertension; I71.33 Infrarenal abdominal aortic aneurysm, ruptured; K85.10 Biliary acute pancreatitis without necrosis or infection; H40.9 Unspecified glaucoma; Z93.3 Colostomy status; Z79.899 Other long term (current) drug therapy; H54.7 Unspecified visual loss; H35.30 Unspecified macular degeneration; E87.6 Hypokalemia; K57.90 Diverticulosis of intestine, part unspecified, without perforation or abscess without bleeding; E83.42 Hypomagnesemia; J44.9 Chronic obstructive pulmonary disease, unspecified; N18.31 Chronic kidney disease, stage 3a; K21.9 Gastro-esophageal reflux disease without esophagitis; I12.9 Hypertensive chronic kidney disease with stage 1 through stage 4 chronic kidney disease, or unspecified chronic kidney disease; N18.9 Chronic kidney disease, unspecified; E66.9 Obesity, unspecified; Z98.49 Cataract extraction status, unspecified eye; Z98.890 Other specified postprocedural states; Z68.27 Body mass index [BMI] 27.0-27.9, adult; Z82.49 Family history of ischemic heart disease and other diseases of the circulatory system; Z85.46 Personal history of malignant neoplasm of prostate; Z85.51 Personal history of malignant neoplasm of bladder
CPT/HCPCS: 36415; 71045; 74176; 76705; 80053; 82150; 83690; 84145; 85025; 86140; 93005; J7120; 83735; 83880; 84100; 85027; 96360; 96361; 99285-25; A9270-GY; C9113; J0131; J0171; J0330; J1100; J1650; J2185; J2405; J2704; J2710; J2795; J3010; J3475; J3480; J3490; J7121; U0002

== ENCOUNTER 2024-06-09 13:41 | Inpatient (IN) | payer MEDICARE, BC ==
[2024-06-09 15:19] LABS: CORONAVIRUS COVID-19 NAA NEGATIVE (NEGATIVE); INFLUENZA A NAA NEGATIVE (NEGATIVE); INFLUENZA B NAA NEGATIVE (NEGATIVE); RESPIRATORY SYNCYTIAL VIR NAA NEGATIVE (NEGATIVE)
[2024-06-09] MEDS ORDERED: Sodium Chloride 0.9% 1,000 ML IV SCH (15:30)
[2024-06-09 15:36] LABS: BASOPHILS PERCENT AUTO 0.2 % (0.1-1.3); EOSINOPHILS PERCENT AUTO 2.6 % (0.0-5.4); HEMATOCRIT 36.8 % (38.4-49.7); HEMOGLOBIN 12.7 g/dL (12.9-16.9); IMMATURE GRAN ABSOLUTE AUTO 0.03 K/uL (0.00-0.23); IMMATURE GRAN PERCENT AUTO 0.3 % (0.0-0.7); LYMPHOCYTES ABSOLUTE AUTO 0.53 K/uL (0.8-3.3); LYMPHOCYTES PERCENT AUTO 4.7 % (11.4-47.7); MEAN CORPUSCULAR HEMOGLOBIN 27.9 pg (31.6-35.5); MEAN CORPUSCULAR HGB CONC 34.5 g/dL (31.6-35.5); MEAN CORPUSCULAR VOLUME 80.7 fL (81.4-99.0); MONOCYTES PERCENT AUTO 3.5 % (3.3-12.6); NEUTROPHILS ABSOLUTE AUTO 10.05 K/uL (1.0-7.6); NEUTROPHILS PERCENT AUTO 88.7 % (40.0-78.1); PLATELET COUNT,PLT 156 K/uL (130-375); RED BLOOD CELL COUNT 4.56 M/uL (4.14-5.76); WHITE BLOOD CELL COUNT,WBC 11.3 K/uL (3.2-11.0)
[2024-06-09 15:37] LABS: BASE EXCESS VENOUS 0.1 mm/L; BICARBONATE,VENOUS 23.1 mmol/L; CARBOXYHEMOGLOBIN 2.8 % (0.0-1.6); METHEMOGLOBIN 0.7 %; OXYHEMOGLOBIN 79.1 %; PCO2 VENOUS 34.1 mm/Hg; PH,VENOUS 7.447 (7.350-7.450); PO2 VENOUS 44.3 mm/Hg; TOTAL HEMOGLOBIN 13.2 g/dL (13.5-18.0)
[2024-06-09 15:38] LABS: BASOPHILS ABSOLUTE AUTO 0.02 K/uL (0.00-0.10)
[2024-06-09] MEDS: Ondansetron 4 MG/2 ML SDV IVPUSH ONE ×2 (15:55→15:56)
[2024-06-09] MEDS: Sodium Chloride 0.9% 1,000 ML IV SCH ×2 (15:56→20:21)
[2024-06-09] MEDS: Acetaminophen 325 MG Tab PO ONE (16:01)
[2024-06-09 16:04] LABS: A/G RATIO 0.9 (1.2-2.2); ALANINE AMINOTRANSFERASE,ALT 11 U/L (12-78); ALBUMIN 3.2 g/dL (3.4-5.0); ALKALINE PHOSPHATASE 108 U/L (46-116); ASPARTATE AMNIOTRANSFERASE,AST 10 U/L (15-37); BILIRUBIN TOTAL 0.8 mg/dL (0.2-1.0); BLOOD UREA NITROGEN,BUN 30 mg/dL (7-18); CALCIUM 8.9 mg/dL (8.5-10.1); CARBON DIOXIDE,CO2 25 mmol/L (21-32); CHLORIDE,CL 105 mmol/L (100-108); EST CRCL DRUG DOSING (CG) 28.97 mL/min; ESTIMATED GFR 33 mL/min (>60); GLUCOSE RANDOM 136 mg/dL (74-106); PRO B-TYPE NATRIUR PEPT,BNPPRO 978 pg/mL (5-450); PROTEIN TOTAL,TP 6.8 g/dL (6.4-8.2); SODIUM,NA 138 mmol/L (140-148)
[2024-06-09] MEDS: Sodium Chloride 0.9% 10 ML Syringe FLUSH ONE (17:08)
[2024-06-09] MEDS: Iopamidol 755 Mg/ML 100 ML Bottle IV ONE (17:08)
[2024-06-09] MEDS: Sodium Chloride 0.9% 100 ML IV ONE (17:08)
[2024-06-09] MEDS: cefTRIAXone 1 GM in Sodium Chloride 0.9% 50 ML IV ONE ×2 (17:28→21:10)
[2024-06-09 18:58] LABS: APPEARANCE,URINE SLIGHTLY CLOUDY (CLEAR); BILIRUBIN,URINE NEGATIVE (NEGATIVE); COLOR,URINE YELLOW (YELLOW); GLUCOSE,URINE NEGATIVE (NEGATIVE); KETONES,URINE NEGATIVE (NEGATIVE); LEUKOCYTE ESTERASE,URINE NEGATIVE (NEGATIVE); NITRITE,URINE NEGATIVE (NEGATIVE); OCCULT BLOOD,URINE TRACE-INTACT (NEGATIVE); PROTEIN,URINE NEGATIVE (NEGATIVE); UROBILINOGEN,URINE 0.2 EU/dL (0.2-1.0)
[2024-06-09 19:13] LABS: AMORPHOUS SEDIMENT,URINE NOT SEEN; BACTERIA,URINE NOT SEEN; EPITHELIAL CELLS,URINE MODERATE; MUCUS,URINE NOT SEEN
[2024-06-09] MEDS ORDERED: Ondansetron 4 MG Tab.DIS PO PRN (19:52)
[2024-06-09] MEDS ORDERED: Melatonin 3 MG Tab PO PRN (19:52)
[2024-06-09] MEDS ORDERED: Sennosides/Docusate Sodium 50-8.6 MG Tab PO PRN (19:52)
[2024-06-09] MEDS ORDERED: Magnesium Hydroxide 400 MG/5 ML Susp 30 ML Cup PO PRN (19:52)
[2024-06-09] MEDS: Allopurinol 100 MG Tab PO SCH (21:24)
[2024-06-09] MEDS: Albuterol/Ipratropium 3.0-0.5 MG/3 ML Neb Soln NEB SCH (21:24)
[2024-06-09] MEDS: Doxycycline 100 MG in Sodium Chloride 0.9% 100 ML IV SCH (21:24)
[2024-06-09] MEDS: Latanoprost 0.005% Ophth Soln 2.5 ML Bottle EYEBOTH SCH (21:32)
[2024-06-09] MEDS: Brimonidine 0.2% Ophth Soln 5 ML Bottle EYEBOTH SCH (21:33)
[2024-06-09] MEDS: Dorzolamide/Timolol 2%-0.5% Ophth Soln 10 ML Bottle EYEBOTH SCH (21:33)
[2024-06-09] MEDS: Metoprolol Tartrate 25 MG Tab PO SCH (21:41)
[2024-06-09] MEDS: Sodium Chloride 0.9% 1,000 ML IV ONE (22:08)
[2024-06-10] MEDS: Albuterol 0.083% 2.5 MG/3 ML Neb Soln NEB PRN (00:38)
[2024-06-10] MEDS: Acetaminophen 325 MG Tab PO PRN (00:38)
[2024-06-10] MEDS: Ondansetron 4 MG/2 ML SDV IV PRN (01:00)
[2024-06-10] MEDS: Ketorolac 15 MG/ML SDV IVPUSH ONE (01:21)
[2024-06-10 04:51] LABS: HEMATOCRIT 34.7 % (38.4-49.7); HEMOGLOBIN 11.8 g/dL (12.9-16.9); MEAN CORPUSCULAR HEMOGLOBIN 27.8 pg (31.6-35.5); MEAN CORPUSCULAR VOLUME 81.6 fL (81.4-99.0); RED BLOOD CELL COUNT 4.25 M/uL (4.14-5.76); WHITE BLOOD CELL COUNT,WBC 14.2 K/uL (3.2-11.0)
[2024-06-10 05:07] LABS: CALCIUM 8.8 mg/dL (8.5-10.1); CREATININE 2.2 mg/dL (0.8-1.3); EST CRCL DRUG DOSING (CG) 26.33 mL/min
[2024-06-10] MEDS ORDERED: DORZOLAMIDE EYEBOTH SCH (08:41)
[2024-06-10] MEDS ORDERED: TIMOLOL EYEBOTH SCH (08:41)
[2024-06-10] MEDS: Enoxaparin 30 MG/0.3 ML Syringe SUBCUT SCH (08:46)
[2024-06-10] MEDS: Lisinopril 2.5 MG Tab PO SCH (08:58)
[2024-06-10] MEDS: TIMOLOL EYEBOTH SCH (10:17)
[2024-06-10] MEDS: DORZOLAMIDE EYEBOTH SCH (10:17)
[2024-06-10] MEDS: Pantoprazole 40 MG Tab.CR PO SCH (11:17)
[2024-06-10] MEDS ORDERED: Pantoprazole 40 MG Tab.CR PO SCH (19:31)
[2024-06-11 05:11] LABS: BASOPHILS PERCENT AUTO 0.1 % (0.1-1.3); EOSINOPHILS ABSOLUTE AUTO 0.44 K/uL (0.00-0.40); EOSINOPHILS PERCENT AUTO 5.4 % (0.0-5.4); HEMATOCRIT 31.6 % (38.4-49.7); HEMOGLOBIN 10.8 g/dL (12.9-16.9); IMMATURE GRAN ABSOLUTE AUTO 0.03 K/uL (0.00-0.23); IMMATURE GRAN PERCENT AUTO 0.4 % (0.0-0.7); LYMPHOCYTES ABSOLUTE AUTO 0.84 K/uL (0.8-3.3); LYMPHOCYTES PERCENT AUTO 10.3 % (11.4-47.7); MEAN CORPUSCULAR HEMOGLOBIN 27.7 pg (31.6-35.5); MEAN CORPUSCULAR HGB CONC 34.2 g/dL (31.6-35.5); MONOCYTES ABSOLUTE AUTO 0.75 K/uL (0.20-0.90); MONOCYTES PERCENT AUTO 9.2 % (3.3-12.6); NEUTROPHILS ABSOLUTE AUTO 6.11 K/uL (1.0-7.6); NEUTROPHILS PERCENT AUTO 74.6 % (40.0-78.1); PLATELET COUNT,PLT 108 K/uL (130-375); WHITE BLOOD CELL COUNT,WBC 8.2 K/uL (3.2-11.0)
[2024-06-11 05:22] LABS: BASOPHILS ABSOLUTE AUTO 0.01 K/uL (0.00-0.10)
[2024-06-11 05:35] LABS: A/G RATIO 0.8 (1.2-2.2); ALANINE AMINOTRANSFERASE,ALT 12 U/L (12-78); ALBUMIN 2.6 g/dL (3.4-5.0); ALKALINE PHOSPHATASE 90 U/L (46-116); ANION GAP 11.9 mmol/L (5.0-14.0); ASPARTATE AMNIOTRANSFERASE,AST 8 U/L (15-37); BILIRUBIN TOTAL 0.3 mg/dL (0.2-1.0); BLOOD UREA NITROGEN,BUN 31 mg/dL (7-18); CALCIUM 8.6 mg/dL (8.5-10.1); CARBON DIOXIDE,CO2 24 mmol/L (21-32); CHLORIDE,CL 106 mmol/L (100-108); CREATININE 2.3 mg/dL (0.8-1.3); EST CRCL DRUG DOSING (CG) 25.19 mL/min; ESTIMATED GFR 28 mL/min (>60); GLUCOSE RANDOM 151 mg/dL (74-106); POTASSIUM,K 3.9 mmol/L (3.6-5.2); PROTEIN TOTAL,TP 5.9 g/dL (6.4-8.2); SODIUM,NA 138 mmol/L (140-148)
[2024-06-11 08:56] VITALS: BP 137/71
[2024-06-11] MEDS ORDERED: Doxycycline 100 MG Cap PO SCH (09:15)
[2024-06-11 09:26] VITALS: PULSE 92
== END 2024-06-11 10:35 | disposition home or self-care (01) | DRG 872 ==
LOC: JP.ED 13:41 → JP.MS 19:27
PROVIDERS: ADMIT Registered Nurse; ATTEND Hospitalist
PROC: 4A033R1 Measurement of Arterial Saturation, Peripheral, Percutaneous Approach (ICD-10-PCS; principal; 2024-06-09)
PROC: 3E03329 Introduction of Other Anti-infective into Peripheral Vein, Percutaneous Approach (ICD-10-PCS; 2024-06-09)
DX: A41.9 Sepsis, unspecified organism (principal); J44.9 Chronic obstructive pulmonary disease, unspecified; I10 Essential (primary) hypertension; J44.1 Chronic obstructive pulmonary disease with (acute) exacerbation; I13.0 Hypertensive heart and chronic kidney disease with heart failure and stage 1 through stage 4 chronic kidney disease, or unspecified chronic kidney disease; N17.9 Acute kidney failure, unspecified; N39.0 Urinary tract infection, site not specified; H54.7 Unspecified visual loss; K21.9 Gastro-esophageal reflux disease without esophagitis; E66.9 Obesity, unspecified; I50.9 Heart failure, unspecified; E11.22 Type 2 diabetes mellitus with diabetic chronic kidney disease; I25.10 Atherosclerotic heart disease of native coronary artery without angina pectoris; J43.9 Emphysema, unspecified; N18.32 Chronic kidney disease, stage 3b; F17.220 Nicotine dependence, chewing tobacco, uncomplicated; I95.9 Hypotension, unspecified; E11.39 Type 2 diabetes mellitus with other diabetic ophthalmic complication; H42 Glaucoma in diseases classified elsewhere; M10.9 Gout, unspecified; I25.2 Old myocardial infarction; Z93.6 Other artificial openings of urinary tract status; Z85.51 Personal history of malignant neoplasm of bladder; Z98.890 Other specified postprocedural states; Z79.899 Other long term (current) drug therapy; Z87.19 Personal history of other diseases of the digestive system; Z87.81 Personal history of (healed) traumatic fracture; Z68.28 Body mass index [BMI] 28.0-28.9, adult; Z98.49 Cataract extraction status, unspecified eye
CPT/HCPCS: 0241U; 36415; 71045; 71275; 80048; 80053; 81001; 82803; 83605; 83880; 84145; 84484; 85025; 85027; 85379; 86140; 87040; 87086; 93005; 94640; 97110; 97161; 99222; 99232; 99239; 96361; 96365; 96375; 99285-25; A9270-GY; J0696; J1650; J1885; J2405; J3490; J7030; J7620; Q9967

== ENCOUNTER 2025-02-25 18:34 | Emergency (ER) | payer MEDICARE, BC ==
[2025-02-25 19:36] LABS: BASOPHILS PERCENT AUTO 0.4 % (0.1-1.3); EOSINOPHILS ABSOLUTE AUTO 0.72 K/uL (0.00-0.40); EOSINOPHILS PERCENT AUTO 12.7 % (0.0-5.4); HEMATOCRIT 38.6 % (38.4-49.7); HEMOGLOBIN 12.7 g/dL (12.9-16.9); IMMATURE GRAN PERCENT AUTO 0.2 % (0.0-0.7); LYMPHOCYTES ABSOLUTE AUTO 1.75 K/uL (0.8-3.3); LYMPHOCYTES PERCENT AUTO 30.9 % (11.4-47.7); MEAN CORPUSCULAR HEMOGLOBIN 28.9 pg (31.6-35.5); MEAN CORPUSCULAR HGB CONC 32.9 g/dL (31.6-35.5); MEAN CORPUSCULAR VOLUME 87.9 fL (81.4-99.0); MONOCYTES ABSOLUTE AUTO 0.51 K/uL (0.20-0.90); NEUTROPHILS ABSOLUTE AUTO 2.65 K/uL (1.0-7.6); NEUTROPHILS PERCENT AUTO 46.8 % (40.0-78.1); PLATELET COUNT,PLT 173 K/uL (130-375); RED BLOOD CELL COUNT 4.39 M/uL (4.14-5.76); WHITE BLOOD CELL COUNT,WBC 5.7 K/uL (3.2-11.0)
[2025-02-25 19:37] LABS: BASOPHILS ABSOLUTE AUTO 0.02 K/uL (0.00-0.10); IMMATURE GRAN ABSOLUTE AUTO 0.01 K/uL (0.00-0.23)
[2025-02-25 20:00] LABS: ALANINE AMINOTRANSFERASE,ALT 20 U/L (12-78); ALBUMIN 3.5 g/dL (3.4-5.0); ALKALINE PHOSPHATASE 127 U/L (46-116); ASPARTATE AMNIOTRANSFERASE,AST 13 U/L (15-37); BILIRUBIN TOTAL 0.3 mg/dL (0.2-1.0); BLOOD UREA NITROGEN,BUN 23 mg/dL (7-18); CALCIUM 9.1 mg/dL (8.5-10.1); CARBON DIOXIDE,CO2 31 mmol/L (21-32); CHLORIDE,CL 104 mmol/L (100-108); CREATININE 1.5 mg/dL (0.8-1.3); EST CRCL DRUG DOSING (CG) 36.73 mL/min; ESTIMATED GFR 46 mL/min (>60); GLUCOSE RANDOM 108 mg/dL (74-106); PROTEIN TOTAL,TP 6.9 g/dL (6.4-8.2); SODIUM,NA 139 mmol/L (140-148); TROPONIN I HIGH SENSITIVITY 17.7 pg/mL (<=60.3)
[2025-02-25 20:49] VITALS: BP 189/91; PULSE 72
== END 2025-02-25 20:37 | disposition home or self-care (01) ==
LOC: JP.ED 18:34
DX: R55 Syncope and collapse (principal); I15.0 Renovascular hypertension; N18.9 Chronic kidney disease, unspecified; K21.9 Gastro-esophageal reflux disease without esophagitis; E66.9 Obesity, unspecified; Z79.899 Other long term (current) drug therapy; Z68.28 Body mass index [BMI] 28.0-28.9, adult; Z87.891 Personal history of nicotine dependence
CPT/HCPCS: 36415; 80053; 84484; 85025; 99284